=== PATIENT | female | born 2005 | race Caucasian/White ===

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

== ENCOUNTER 2025-07-03 10:07 | Inpatient (IN) ==
[2025-07-03 11:39] LABS: Appearance Urine Clear (Clear); Glucose Urine UA Negative (Negative)
[2025-07-03 11:40] LABS: Hematocrit (blood only) 44.0 % (37.0-47.0); Hemoglobin 15.2 g/dL (12.0-16.0); Immature Granulocytes # (auto) 0.06 K/uL (0.01-0.20); Immature Granulocytes % (auto) 0.4 %; Mean Corpuscular Hemoglobin 28.9 pg (25.0-34.0); Mean Corpuscular Volume 83.7 fL (80.0-100.0); Platelet Count 335 K/uL (130-400); RDW Standard Deviation 39.6 fL (36.4-46.3); Red Blood Count 5.26 M/uL (4.20-5.40); White Blood Count 14.31 K/ul (4.8-10.8)
[2025-07-03 11:56] LABS: Alanine Aminotransferase 10.0 U/L (7-52); Albumin Globulin Ratio 1.6 (0.9-2); Albumin Level 4.7 gm/dl (3.4-5.0); Alkaline Phosphatase 66.0 U/L (34-104); Anion Gap 8.0 (3-11); Bilirubin,Total 0.3 mg/dl (0.2-1.0); Blood Urea Nitrogen 14.0 mg/dl (6-23); Calcium 9.5 mg/dl (8.6-10.3); Carbon Dioxide 27.0 mmol/L (21-32); Chloride 103.0 mmol/L (98-107); Creatinine Clr Calc Pharmacy 97.7 ml/min; Globulin 3.0 gm/dl (2.5-4.0); Glucose 96.0 mg/dl (70-99(Fasting)); Potassium 4.1 mmol/L (3.5-5.1); Sodium 138.0 mmol/L (136-145); Total Protein 7.7 gm/dl (6.0-8.3)
[2025-07-03 11:58] LABS: Amphetamines+Metham, Urine Neg (Neg); MDMA (Ecstacy), Urine Neg (Neg); Marijuana, Urine Pos (Neg)
[2025-07-03 12:08] LABS: Acetaminophen < 3 ug/ml (10-30); Salicylate < 3.0 mg/dl (3.0-30)
[2025-07-03 12:10] LABS: Thyroid Stimulating Hormone 2.829 uIu/ml (0.300-4.500)
--- NOTE | 2025-07-03 12:22 | Emergency Department Note ---
History of Present Illness General Chief complaint: Mental Health Evaluation Stated complaint: SUICIDAL THOUGHTS, REF BY DOC Time Seen by Provider: 07/03/25 11:10 Source: patient Mode of arrival: ambulatory Limitations: no limitations History of Present Illness Patient was sent over to the emergency room for mental health evaluation. She was filling out a depression screening at her primary care office and there were several red flags noted. She has had some ongoing suicidal thoughts for months now. No current plan or change in thoughts at this time. She states she has had less motivation and increased fatigue over the past few weeks. She is taking fluoxetine at home. Not currently established with a psychiatrist for the past month. Denies any auditory or visual hallucinations. No homicidal ideations. Denies increased anxiety. Daily marijuana user. No alcohol use reported. No other medical complaints at this time. Home Medications Medication Instructions Recorded Confirmed Type hydroxyzine HCl 50 mg tablet 50 mg PO BID PRN anxiety, insomnia 11/25/24 07/03/25 Rx #60 tabs fluoxetine 40 mg capsule 60 mg PO QAM 12/18/24 07/03/25 History guanfacine 1 mg tablet 1 mg PO HS 07/03/25 07/03/25 History mirtazapine 15 mg tablet 15 mg PO HS 07/03/25 07/03/25 History Allergies Allergy/AdvReac Type Severity Reaction Status Date / Time No Known Allergies Allergy Unverified 11/18/24 21:11 Past Med/Surg History Problem List (Updated 07/03/25 @ 13:31 by Derek Connolly MD) Alcohol use Depression with suicidal ideation (Acute) Borderline personality disorder Trauma and stressor-related disorder Insomnia Cannabis use disorder MDD (major depressive disorder), recurrent severe, without psychosis Generalized anxiety disorder with panic attacks Medical History (Updated 07/03/25 @ 13:31 by Derek Connolly MD) Relationship problem with boyfriend Hypokalemia Suicide attempt by drug overdose Social History Smoking Status: Current some day smoker Tobacco Type: E-cigarettes / Vaping Preferred Language: Mauritian Communication Ability: Effective Sap Pi Developer Required: No Beliefs That Will Affect Care: None Feels Safe at Home: Yes Gender Identity: Female Assistive Devices: Glasses Review of Systems Review of systems negative outside of positive findings mentioned in HPI. Physical Exam Vital Signs Vital Signs - 24 hr 07/03/25 10:10 Temperature 36.6 C Temperature Source Temporal Artery Scan Pulse Rate 82 Respiratory Rate 17 Respiratory Effort / Characteristics Non-Labored Spontaneous Respiratory Depth Normal Blood Pressure 107/72 Blood Pressure Mean 83 Pulse Oximetry 97 Oxygen Delivery Method Room Air Sepsis Recent Fever Within 48 Hours No Sepsis New/Unexplained Change in Mental Status No Sepsis Action Taken by Nursing No Action Required See below. Constitutional WD/WN, vitals as above Eyes PERRL, conjunctivae normal, anicteric sclerae Respiratory normal respiratory effort, lungs clear to auscultation Cardiovascular RRR, no murmur, no edema Gastrointestinal (Abdomen) normal bowel sounds, soft, nontender, no hepatosplenomegaly Skin no rashes, warm and dry Psychiatric Orientation: alert and oriented x 3 Eye Contact: + fair eye contact Speech: speech normal rate, rhythm, volume Affect: + flat affect Mood: + depressed mood Thought Process: linear, logical thought process Homicidal Thoughts: denies suicidal thoughts Hallucinations: no auditory hallucinations and no visual hallucinations Insight: good insight Judgment: + limited judgement Medical Decision Making Differential Diagnosis DDx includes but not limited to: Depression, anxiety, suicidal ideations, seasonal affective disorder, metabolic abnormality, infection Medical Records Attestation: I reviewed the patient's medical records. Home Medications Current Medication List: was personally reviewed by me Laboratory Data Attestation: I reviewed the patient's lab results. 07/03/25 10:30 07/03/25 10:30 Lab Results 07/03/25 07/03/25 Range/Units 10:30 11:53 WBC 14.31 H (4.8-10.8) K/ul RBC 5.26 (4.20-5.40) M/uL Hgb 15.2 (12.0-16.0) g/dL Hct 44.0 (37.0-47.0) % MCV 83.7 (80.0-100.0) fL MCH 28.9 (25.0-34.0) pg MCHC 34.5 (32.0-36.0) g/dL RDW Std Deviation 39.6 (36.4-46.3) fL RDW Coeff of Derrick 12.9 (11.5-14.5) % Plt Count 335 (130-400) K/uL MPV 9.9 (9.4-12.4) fL Immature Gran % (Auto) 0.4 % Neut % (Auto) 71.4 % Lymph % (Auto) 21.7 % [place] % (Auto) 4.1 % Eos % (Auto) 1.8 % Baso % (Auto) 0.6 % Neut # (Auto) 10.21 H (1.40-6.50) K/uL Lymph # (Auto) 3.11 (1.20-3.40) K/uL [place] # (Auto) 0.59 (0.11-0.59) K/uL Eos # (Auto) 0.26 (0.00-0.50) K/uL Baso # (Auto) 0.08 (0.00-0.20) K/uL Immature Gran # (Auto) 0.06 (0.01-0.20) K/uL Sodium 138 (136-145) mmol/L Potassium 4.1 (3.5-5.1) mmol/L Chloride 103 (98-107) mmol/L Carbon Dioxide 27 (21-32) mmol/L Anion Gap 8 (3-11) BUN 14 (6-23) mg/dl Creatinine 0.76 (0.6-1.2) mg/dl Est Cr Clr Drug Dosing 97.7 ml/min eGFR 114.97 BUN/Creatinine Ratio 18.4 (10-20) Glucose 96 (70-99(Fasting)) mg/dl Calcium 9.5 (8.6-10.3) mg/dl Total Bilirubin 0.3 (0.2-1.0) mg/dl AST 19 (13-39) U/L ALT 10 (7-52) U/L Alkaline Phosphatase 66 (34-104) U/L Total Protein 7.7 (6.0-8.3) gm/dl Albumin 4.7 (3.4-5.0) gm/dl Globulin 3.0 (2.5-4.0) gm/dl Albumin/Globulin Ratio 1.6 (0.9-2) TSH 2.829 (0.300-4.500) uIu/ml Urine Color Yellow Urine Appearance Clear (Clear) Urine pH 6.5 (4.5-7.5) Ur Specific [place] 1.022 (1.000-1.030) Urine Protein Negative (Negative) Urine Glucose (UA) Negative (Negative) Urine Ketones Negative (Negative) Urine Blood Negative (Negative) Urine Nitrite Negative (Negative) Urine Bilirubin Negative (Negative) Urine Urobilinogen Negative (Negative) Ur Leukocyte Esterase Negative (Negative) Urine Test Negative (Negative) Urine Comment Salicylates < 3.0 L (3.0-30) mg/dl Urine Opiates Screen Neg (Neg) Ur Methadone, Qual Neg (Neg) Urine Fentanyl Screen Neg (Neg) Acetaminophen < 3 L (10-30) ug/ml Urine Barbiturates Neg (Neg) Ur Phencyclidine (PCP) Neg (Neg) U Amphetamin/Meth Scrn Neg (Neg) MDMA (Ecstasy) Screen Neg (Neg) U Benzodiazepines Scrn Neg (Neg) Ur Cocaine Metabolite Neg (Neg) U Marijuana (THC) Screen Pos H (Neg) Ethyl Alcohol mg/dL < 10.0 (<10.0) mg/dl SARS-CoV-2, RNA, NAAT NEGATIVE (NEGATIVE) Blood Pressure Blood Pressure Findings: Normal blood pressure MDM Narrative Patient is a 20-year-old female presents for suicidal ideations that was discovered during her primary care visit. She does endorse passive suicidal ideations without a plan. She has also had increased depressive mood and lack of motivation over the past month. She is not currently set up with a psychiatrist outpatient but does take fluoxetine. No current medical complaints or findings on her workup here today concerning for organic cause of her ongoing symptoms and she is medically cleared for psychiatric evaluation. She will be admitted under voluntary status to inpatient psychiatry service here at [facility]. Patient is medically cleared at this time. Impression & Plan Depression with suicidal ideation Discharge Plan Visit Data Chief Complaint: Mental Health Evaluation Stated Complaint: SUICIDAL THOUGHTS, REF BY DOC ED Provider: Derek Connolly Discharge Problem: Depression with suicidal ideation Patient Disposition: Admitted As Inpatient Condition: Good Forms Stand Alone Forms: My [facility], Suicide Prevention Resources Prescriptions Prescriptions: No Action fluoxetine 40 mg capsule 60 mg PO QAM guanfacine 1 mg Tablet 1 mg PO HS mirtazapine 15 mg Tablet 15 mg PO HS hydroxyzine HCl 50 mg tablet 50 mg PO BID PRN (Reason: anxiety, insomnia) Qty: 60 0RF Referrals Referrals: PCP,NO [Primary Care Provider] -
[2025-07-03] MEDS ORDERED: BISMUTH SUBSALICYLATE 262 MG CHEW PO PRN (14:15)
[2025-07-03] MEDS ORDERED: SODIUM CHLORIDE 0.65% NA SOLN 45 ML (OCEAN) PRN (14:15)
[2025-07-03] MEDS ORDERED: MAGNESIUM HYDROXIDE SUSP 30 ML UDC PO PRN (14:15)
[2025-07-03] MEDS ORDERED: ALUMINUM/MAGNESIUM SUSP 30 ML UDC PO PRN (14:15)
[2025-07-03] MEDS ORDERED: ACETAMINOPHEN 325 MG TAB PO PRN (14:15)
[2025-07-03] MEDS: MIRTAZAPINE TAB 15 MG TAB PO SCH (20:11)
[2025-07-04] MEDS: NICOTINE POLACRILEX 2 MG GUM MT PRN (06:40)
[2025-07-04] MEDS: NICOTINE 7 MG/24 HR TDSY TD SCH (09:05)
[2025-07-04] MEDS: REMOVE NICODERM PATCH SCH (09:05)
--- NOTE | 2025-07-04 09:07 | History & Physical ---
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 Comes today via ER with similar presentation. She has been smoking marijuana and drinking alcohol. Patient dropped out of school has been feeling extremely fatigued and unmotivated. 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 She completed the autism quotient (AQ) and score at 24. Autism spectrum disorder is highly likely. Patient expressed frustration with the ineffectiveness of psychotherapy and previous medications. She perceives that Prozac is not effective and is unwilling to increase the dose. We discussed other options. Patient agreed to cross titrate in favor of Effexor. Side effects discussed including but not limited to GI headaches and discontinuation syndrome symptoms. (1) Depression with suicidal ideation: (2) Cannabis use disorder: (3) MDD (major depressive disorder), recurrent severe, without psychosis: (4) Generalized anxiety disorder with panic attacks: (5) Autism spectrum disorder: Provisional Plan 07/04: Patient was admitted to the [facility] ([facility] mental health unit) on q15 min checks (behavioral with suicide precautions) for safety. The patient will participate in group, recreational, and milieu therapies and will be offered add itional individual and family sessions as clinically appropriate. - Start Effexor 37.5 mg p.o. every morning (first dose 07/05) - Discontinue fluoxetine 40mg daily -Increase guanfacine to 1 mg twice daily. Educated about risk for hypotension. Recommended to increase water intake. -Labs: Admission labs reviewed and shared with the patient -Questionnaire: Autism Quotient (score=24) Inventory Assets Strengths: Seeking help, curious, intelligent. Suicide Risk Level Suicide Risk Level: High-Moderate (q15 min suicide checks) Risk Factors Assessment Do You Have Access To A Gun?: No Health Problems: No Mental Health Diagnoses: Yes Substance Use Disorders: Yes Previous Attempt: Yes Family History of Suicide: No Previous Psychiatric Hospitalization: Yes Hopelessness: Yes Protective Factors Assessment Employed: Yes ([employer]) Good Rapport with Provider: Yes Psychiatric History Identifying Data LINDA ROMERO is a 20-year-old F who currently lives in [] [alone] with [], has a history of [], and was admitted on 07/03/25 14:15 on a [201 voluntary] [302 involuntary] commitment for []. Chief Complaint "I was not able to function" History of Present Illness LINDA ROMERO is a 20-year-old F who currently lives with a roommate, has a history of depression and anxiety, and was admitted on 07/03/25 14:15 on a 201 voluntary commitment for stabilization. According to the emergency room evaluation note on 07/03/25, "Patient was sent over to the emergency room for mental health evaluation. She was filling out a depression screening at her primary care office and there were several red flags noted. She has had some ongoing suicidal thoughts for months now. . ." Patient has previous admission at [facility] in November 2024 she was treated for MDD, BEN, and insomnia. she was recommended to continue treatment with clonidine, fluoxetine, quetiapine, and lorazepam. Medications were changed in the outpatient setting. Her home medications include t guanfacine, mirtazapine, duloxetine, hydroxyzine. Patient indicated that she has been feeling depressed for over a year but also believes that she has had difficulty with emotional regulation "my entire life.". Patient shared that she stopped going to school and is taking "a gap year" because of financial constraints. However, she admits that she had been struggling to function in school and feels unmotivated to continue her career path. Patient stated that she used to have problems with insomnia for many years and after the introduction of Remeron the insomnia improved but in the last month she has been sleeping too much, staying in bed 14 hours or more. She wishes to continue Remeron but to find a way of being active during the daytime. She reports feeling extremely fatigued both physically and mentally. Patient stated "I was in bed always, and if I left the place he wants to go to work if I was able to find myself to go to work." She has stated that the symptoms worsened in the last month and the last 2 weeks have been particularly . Patient has a long history of emotional dysregulation, difficulty with social cues, feelings of not belonging, difficulty communicating her thoughts "because I have too many thoughts and I had she denied." History of episodes consistent with jose like symptoms. Reported some obsessive thinking but no clear history of compulsions or ritualistic behaviors. She has a history of interacting in an imaginary world when she was younger but denies history of psychosis. Patient was never formally diagnosed with ADHD but admits to having problems with attention and concentration. She feels that guanfacine has been very helpful. Wishes to increase the dose of guanfacine and understands that this can cause hypotension. Patient denied suicidal ideation plan or intent at this time. However reports past attempts including an attempt to overdose early earlier this year (which prompted an admission to our hospital in October). Past Psychiatric History Previous Psych History: Patient expressed to struggle with his emotional dysregulation affecting social interactions and sleep patterns. She reported a long history of anxiety and emotional problems dating back to seventh grade. She has seen multiple psychotherapist and feels that that treatment format has not provided any benefit. Patient has tried multiple medications in the past including Celexa, Zoloft, Wellbutrin, lithium. She stated that none of those medications seem to be helpful. Previously diagnosed with MDD BEN and borderline personality disorder. Cannabis use disorder Current Psychiatric Diagnosis: Unspecified Depressive Disorder Previous Psych Admissions: [facility] October [facility]24 Do You Have Access To A Gun?: No History of Previous Suicide Attempt: Yes Past Head Trauma/Neuro History Denied Allergies Allergy/AdvReac Type Severity Reaction Status Date / Time No Known Allergies Allergy Unverified 11/18/24 21:11 Home Medications Medication Instructions Recorded Confirmed Type hydroxyzine HCl 50 mg tablet 50 mg PO BID PRN anxiety, insomnia 11/25/24 07/03/25 Rx #60 tabs fluoxetine 40 mg capsule 40 mg PO QAM 12/18/24 07/04/25 History guanfacine 1 mg tablet 1 mg PO HS 07/03/25 07/03/25 History mirtazapine 15 mg tablet 15 mg PO HS 07/03/25 07/03/25 History Family History Family History of: Depression, Anxiety and Alcoholism/Drug Abuse Family Mental Health History Comment: Pt unable to provide any details Alcohol History Hx of Alcohol Use Over the Past 12 Months: Yes (socially) AUDIT Total Score: 1 Has been drinking. Unable to quantify. Back in October during a previous admission patient reported she had been drinking heavily with her friends. No evidence of withdrawal symptoms at this time. Smoking Use Have You Smoked or Used Tobacco Products in the Last 30 Days: Yes tobacco type: e-cigarettes Smoking Status: Current some day smoker Substance History Hx of Prescription Med Misuse Over the Past 12 Months: No Hx of Over the Counter Med Misuse Over the Past 12 Months: No Hx of Inhalent Misuse Over the Past 12 Months: No Hx of Organic Substance Use Over the Past 12 Months: Yes (MJ use daily) Hx of Illegal Substances/Street Drug Use Over Past 12 Months: No Problems as a Result of Past Substance Use: None Identified Personal History Living Arrangements: Apartment Highest Grade Completed: High School Graduate Highest Grade Completed Comment: Pt is taking a gap yr at [employer],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 Marital Status: Single Number Of Children: 0 Beliefs That Will Affect Care: None Hx Traumatic Life Events: Yes Patient History Medical History Relationship problem with boyfriend Hypokalemia Suicide attempt by drug overdose Social History Smoking Status: Current some day smoker Tobacco Type: E-cigarettes / Vaping Preferred Language: Vietnamese Communication Ability: Effective Supervisory Historian Required: No Beliefs That Will Affect Care: None Feels Safe at Home: Yes Gender Identity: Female Assistive Devices: Glasses Review of Systems Constitutional: Fatigue Eyes: No changes in visual acuity Ear, Nose, Mouth, Throat: Denies congestion, denies sore throat Respiratory: Denies shortness of breath Cardiovascular: Additional Comments: Denies chest pain Endocrine: Reported an episode of hypothyroidism 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 Patient no longer taking lithium Physical Exam Mental Examination: Appearance: Well Groomed Eye Contact: Fleeting Contact Motor Behavior: Unremarkable Speech: Normal and Soft Mood: Depressed and Anxious Affect: Anxious, Congruent and Flat Thought Process: Intact and Goal Oriented Hallucinations: None Insight: Fair Judgement: Fair Psychiatric: Orientation: alert and oriented x 3 Eye Contact: + fair eye contact Speech: normal rate/rhythm/volume of speech Affect: + flat affect Mood: + depressed mood and + anxious mood Thought Process: linear/logical thought process Homicidal Thoughts: denies homicidal thoughts H allucinations: no auditory hallucinations and no visual hallucinations Insight: good insight Judgment: + limited judgement Vital Signs (Past 24 Hours): Last Vital Signs Temp 36.7 C 07/04/25 06:00 Pulse 67 07/04/25 06:16 Resp 16 07/04/25 06:00 BP 91/60 L 07/04/25 06:16 Pulse Ox 98 07/03/25 15:02 O2 Del Method Room Air 07/03/25 15:02 Physical Examination: A physical exam was performed in the [ED] by Dr. Greenfield. I accept that physical as correct and adequate for the purposes of the inpatient physical exam. Constitutional: WD/WN, vitals as above Eyes: PERRL, conjunctivae normal, anicteric sclerae Respiratory: normal respiratory effort, lungs clear to auscultation Cardiovascular: RRR, no murmur, no edema Gastrointestinal (Abdomen): normal bowel sounds, soft, nontender, no hepatosplenomegaly Skin: no rashes, warm and dry Results & Data ([facility]) Laboratory Results Laboratory Results - last 24 hr 07/03/25 07/03/25 10:30 11:53 WBC 14.31 H RBC 5.26 Hgb 15.2 Hct 44.0 MCV 83.7 MCH 28.9 MCHC 34.5 RDW Std Deviation 39.6 RDW Coeff of Derrick 12.9 Plt Count 335 MPV 9.9 Immature Gran % (Auto) 0.4 Neut % (Auto) 71.4 Lymph % (Auto) 21.7 [place] % (Auto) 4.1 Eos % (Auto) 1.8 Baso % (Auto) 0.6 Neut # (Auto) 10.21 H Lymph # (Auto) 3.11 [place] # (Auto) 0.59 Eos # (Auto) 0.26 Baso # (Auto) 0.08 Immature Gran # (Auto) 0.06 Sodium 138 Potassium 4.1 Chloride 103 Carbon Dioxide 27 Anion Gap 8 BUN 14 Creatinine 0.76 Est Cr Clr Drug Dosing 97.7 eGFR 114.97 BUN/Creatinine Ratio 18.4 Glucose 96 Calcium 9.5 Total Bilirubin 0.3 AST 19 ALT 10 Alkaline Phosphatase 66 Total Protein 7.7 Albumin 4.7 Globulin 3.0 Albumin/Globulin Ratio 1.6 TSH 2.829 Urine Color Yellow Urine Appearance Clear Urine pH 6.5 Ur Specific [place] 1.022 Urine Protein Negative Urine Glucose (UA) Negative Urine Ketones Negative Urine Blood Negative Urine Nitrite Negative Urine Bilirubin Negative Urine Urobilinogen Negative Ur Leukocyte Esterase Negative Urine Test Negative Urine Comment Salicylates < 3.0 L Urine Opiates Screen Neg Ur Methadone, Qual Neg Urine Fentanyl Screen Neg Acetaminophen < 3 L Urine Barbiturates Neg Ur Phencyclidine (PCP) Neg U Amphetamin/Meth Scrn Neg MDMA (Ecstasy) Screen Neg U Benzodiazepines Scrn Neg Ur Cocaine Metabolite Neg U Marijuana (THC) Screen Pos H U Marijuana THC Carboxy Pending Drug Screen Comment Pending Ethyl Alcohol mg/dL < 10.0 SARS-CoV-2, RNA, NAAT NEGATIVE Current Inpatient Medications Current Inpatient Medications: Current Inpatient Medications Acetaminophen (Acetaminophen 325 Mg Tab) 650 mg PO Q4H PRN PRN Reason: Headache or Minor Fever Stop: 08/02/25 14:14 Al Hydrox/Mg Hydrox/Simethicone (Aluminum/Magnesium Susp 30 Ml Udc) 30 ml PO Q4H PRN PRN Reason: GI Upset Stop: 08/02/25 14:14 Bismuth Subsalicylate (Bismuth Subsalicylate 262 Mg Chew) 2 tab PO Q30M PRN PRN Reason: Loose Stool/Diarrhea Stop: 08/02/25 14:14 Fluoxetine HCl (Fluoxetine Hcl 20 Mg Cap) 60 mg PO QAM H[place]OL[place]O Stop: 08/03/25 08:59 Last Admin: 07/04/25 09:04 Dose: 60 mg Guanfacine HCl (Guanfacine Hcl 1 Mg Tab) 1 mg PO HS H[place]OLITO Stop: 08/02/25 21:59 Last Admin: 07/03/25 20:11 Dose: 1 mg Hydroxyzine HCl (Hydroxyzine Hcl 25 Mg Tab) 50 mg PO HSZ PRN PRN Reason: Insomnia Stop: 08/02/25 14:14 Hydroxyzine HCl (Hydroxyzine Hcl 25 Mg Tab) 25 mg PO Q4H PRN PRN Reason: Anxiety Stop: 08/02/25 14:14 Magnesium Hydroxide (Magnesium Hydroxide Susp 30 Ml Udc) 30 ml PO DAILY PRN PRN Reason: Constipation Stop: 08/02/25 14:14 Mirtazapine (Mirtazapine Tab 15 Mg Tab) 15 mg PO HS H[place]OLITO Stop: 08/02/25 21:59 Last Admin: 07/03/25 20:11 Dose: 15 mg Miscellaneous (Remove Nicoderm Patch) 1 each N/A DAILY@0859 [place]O Stop: 08/03/25 08:58 Last Admin: 07/04/25 09:05 Dose: Not Given Nicotine (Nicotine 7 Mg/24 Hr Tdsy) 1 patch TD QAM [place]O Stop: 08/03/25 08:59 Last Admin: 07/04/25 09:05 Dose: Not Given Nicotine Polacrilex (Nicotine Polacrilex 2 Mg Gum) 2 piece MT PRN PRN PRN Reason: Nicotine Withdrawal Symptoms Stop: 08/02/25 14:14 Last Admin: 07/04/25 06:40 Dose: 2 piece Sodium Chloride (Sodium Chloride 0.65% Na Soln 45 Ml ([place])) 1 - 2 sprays NA PRN PRN PRN Reason: Nasal Dryness/Congestion Stop: 08/02/25 14:14
[2025-07-05] MEDS: VENLAFAXINE HCL 37.5 MG TAB PO SCH (08:44)
--- NOTE | 2025-07-05 11:28 | Psychiatric Progress Note ---
Date of Service July 05, 2025 Impression / Recommendations Impression Patient with symptoms of depression, anxiety, borderline traits. Agreeable to switching to Effexor and tolerated first dose well. Now ready for increase on the dose tomorrow. She requested to keep the Remeron as it has been helpful for insomnia. (1) Depression with suicidal ideation: (2) Cannabis use disorder: (3) MDD (major depressive disorder), recurrent severe, without psychosis: (4) Generalized anxiety disorder with panic attacks: (5) Autism spectrum disorder: Provisional Plan 07/05/25: -Increase Effexor to 75mg po tomorrow. -continue rest of medication without changes -continue suicide precautions. 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 Comes today via ER with similar presentation. She has been smoking marijuana and drinking alcohol. Patient dropped out of school has been feeling extremely fatigued and unmotivated. 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 She completed the autism quotient (AQ) and score at 24. Autism spectrum disorder is highly likely. - Start Effexor 37.5 mg p.o. every morning (first dose 07/05) - Discontinue fluoxetine 40mg daily -Increase guanfacine to 1 mg twice daily. Educated about risk for hypotension. Recommended to increase water intake. -Labs: Admission labs reviewed and shared with the patient -Questionnaire: Autism Quotient (score=24) Inventory Assets Strengths: Seeking help, curious, intelligent. Suicide Risk Level Suicide Risk Level: High-Moderate (q15 min suicide checks) Risk Factors Assessment Do You Have Access To A Gun?: No Health Problems: No Mental Health Diagnoses: Yes Substance Use Disorders: Yes Previous Attempt: Yes Family History of Suicide: No Previous Psychiatric Hospitalization: Yes Hopelessness: Yes Protective Factors Assessment Employed: Yes ([employer]) Good Rapport with Provider: Yes Interval History Identifying Information LINDA ROMERO is a 20-year-old F who was admitted on 07/03/25 14:15 on a 201 voluntary commitment for suicidal ideation. Chief Complaint "I was having very anxious dreams all the time and I didn't have bad dream last night." Review of Systems Sleep Information Total Hours of Sleep: 5.5 Meal Information Percent Meal Consumed - Breakfast: 25 Percent Meal Consumed - Lunch: 65 Percent Meal Consumed - Dinner: 90 Subjective Subjective Patient was seen & assessed and interval progress reviewed with nursing and social work. She complained of feeling dizzy earlier in the day while at was able to increase water intake and the dizziness resolved. Patient reported she feels restless most of the day but relaxes when playing with puzzles. Her affect is brighter but her thought process is pessimistic and tangential.. Reported she feels safe on the unit and being here prevents her form "falling back" (as in hurting herself). She explained that she has chronic suicidal faults and also episodic self mutilation that she utilizes as a coping mechanism when feeling overly anxious or having a panic attack. Denied side effects from first dose of Effexor. Physical Exam Mental Examination Appearance: Well Groomed Eye Contact: Fleeting Contact Motor Behavior: Unremarkable Speech: Normal and Soft Mood: Depressed and Anxious Affect: Anxious, Congruent and Flat Thought Process: Intact and Goal Oriented Hallucinations: None Insight: Fair Judgement: Fair Psychiatric Orientation: alert and oriented x 3 Eye Contact: + fair eye contact Speech: normal rate/rhythm/volume of speech Affect: + flat affect Mood: + depressed mood and + anxious mood Thought Process: + tangential thought process Homicidal Thoughts: denies homicidal thoughts Hallucinations: no auditory hallucinations and no visual hallucinations Insight: good insight Judgment: + limited judgement Vital Signs (Past 24 Hours) Last Vital Signs Temp 36.3 C L 07/05/25 06:00 Pulse 65 07/05/25 06:28 Resp 16 07/05/25 06:00 BP 90/53 L 07/05/25 06:28 Pulse Ox 98 07/03/25 15:02 O2 Del Method Room Air 07/03/25 15:02 A physical exam was performed in the ED by Dr. Greenfield. I accept that physical as correct and adequate for the purposes of the inpatient physical exam. No changes to the exam today Constitutional WD/WN, vitals as above Eyes PERRL, conjunctivae normal, anicteric sclerae Respiratory normal respiratory effort, lungs clear to auscultation Cardiovascular RRR, no murmur, no edema Gastrointestinal (Abdomen) normal bowel sounds, soft, nontender, no hepatosplenomegaly Skin no rashes, warm and dry Results & Data ([facility]) Current Inpatient Medications Current Inpatient Medications: Current Inpatient Medications Acetaminophen (Acetaminophen 325 Mg Tab) 650 mg PO Q4H PRN PRN Reason: Headache or Minor Fever Stop: 08/02/25 14:14 Al Hydrox/Mg Hydrox/Simethicone (Aluminum/Magnesium Susp 30 Ml Udc) 30 ml PO Q4H PRN PRN Reason: GI Upset Stop: 08/02/25 14:14 Bismuth Subsalicylate (Bismuth Subsalicylate 262 Mg Chew) 2 tab PO Q30M PRN PRN Reason: Loose Stool/Diarrhea Stop: 08/02/25 14:14 Guanfacine HCl (Guanfacine Hcl 1 Mg Tab) 1 mg PO BID [facility] Stop: 08/03/25 20:59 Last Admin: 07/05/25 08:44 Dose: 1 mg Hydroxyzine HCl (Hydroxyzine Hcl 25 Mg Tab) 50 mg PO HSZ PRN PRN Reason: Insomnia Stop: 08/02/25 14:14 Hydroxyzine HCl (Hydroxyzine Hcl 25 Mg Tab) 25 mg PO Q4H PRN PRN Reason: Anxiety Stop: 08/02/25 14:14 Last Admin: 07/04/25 21:19 Dose: 25 mg Magnesium Hydroxide (Magnesium Hydroxide Susp 30 Ml Udc) 30 ml PO DAILY PRN PRN Reason: Constipation Stop: 08/02/25 14:14 Mirtazapine (Mirtazapine Tab 15 Mg Tab) 15 mg PO HS [facility] Stop: 08/02/25 21:59 Last Admin: 07/04/25 21:18 Dose: 15 mg Miscellaneous (Remove Nicoderm Patch) 1 each N/A DAILY@0859 [facility] Stop: 08/03/25 08:58 Last Admin: 07/05/25 08:44 Dose: Not Given Nicotine (Nicotine 7 Mg/24 Hr Tdsy) 1 patch TD QAM [facility] Stop: 08/03/25 08:59 Last Admin: 07/05/25 08:45 Dose: Not Given Nicotine Polacrilex (Nicotine Polacrilex 2 Mg Gum) 2 piece MT PRN PRN PRN Reason: Nicotine Withdrawal Symptoms Stop: 08/02/25 14:14 Last Admin: 07/05/25 11:06 Dose: 2 piece Sodium Chloride (Sodium Chloride 0.65% Na Soln 45 Ml ([place])) 1 - 2 sprays NA PRN PRN PRN Reason: Nasal Dryness/Congestion Stop: 08/02/25 14:14 Venlafaxine HCl (Venlafaxine Hcl 37.5 Mg Tab) 37.5 mg PO BID [facility] Stop: 08/04/25 08:59 Last Admin: 07/05/25 08:44 Dose: 37.5 mg Mental Health & Subst Abuse Tx Psychiatrist Date Of Appointment With Psychiatric Provider: 08/07/25 Therapist Name of Therapist: None Sign Letterer Name of Sign Letterer: Denies Post Discharge Appointments Primary Care Physician [facility]
--- NOTE | 2025-07-06 10:19 | Psychiatric Progress Note ---
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 Comes today via ER with similar presentation. She has been smoking marijuana and drinking alcohol. Patient dropped out of school has been feeling extremely fatigued and unmotivated. Chronic suicidal ideation and self-harm urges, mood dysregulation, feelings of emptiness, and hopelessness consistent with borderline personality disorder. 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 She completed the autism quotient (AQ) and score at 24. We are targeting depression and anxiety with antidepressants she may benefit from augmentation with antipsychotics but declined the offer. Patient will benefit from continuing psychotherapy after discharge. (1) Depression with suicidal ideation: (2) Cannabis use disorder: (3) MDD (major depressive disorder), recurrent severe, without psychosis: (4) Generalized anxiety disorder with panic attacks: (5) Autism spectrum disorder: Provisional Plan 07/06/25: - Patient did not try higher dose of Effexor today but will take the higher dose tomorrow morning. Will monitor for GI side effects. - Silvadene topical cream twice daily for self-inflicted superficial burn - Rest of medication continue without changes - Continue suicide precautions 07/05/25: -Increase Effexor to 75mg po tomorrow. -continue rest of medication without changes -continue suicide precautions. 07/04: Patient was admitted to the [facility] ([facility] health unit) on q15 min checks (behavioral with suicide precautions) for safety. The patient will participate in group, recreational, and milieu therapies and will be offered additional individual and family sessions as clinically appropriate. - Start Effexor 37.5 mg p.o. every morning (first dose 07/05) - Discontinue fluoxetine 40mg daily -Increase guanfacine to 1 mg twice daily. Educated about risk for hypotension. Recommended to increase water intake. -Labs: Admission labs reviewed and shared with the patient -Questionnaire: Autism Quotient (score=24) Inventory Assets Strengths: Seeking help, curious, intelligent. Suicide Risk Level Suicide Risk Level: High-Moderate (q15 min suicide checks) Risk Factors Assessment Do You Have Access To A Gun?: No Health Problems: No Mental Health Diagnoses: Yes Substance Use Disorders: Yes Previous Attempt: Yes Family History of Suicide: No Previous Psychiatric Hospitalization: Yes Hopelessness: Yes Protective Factors Assessment Employed: Yes ([employer]) Good Rapport with Provider: Yes Interval History Chief Complaint "I eel pretty hopeless today". Review of Systems Sleep Information Total Hours of Sleep: 7 Meal Information Percent Meal Consumed - Breakfast: 5 Percent Meal Consumed - Lunch: 10 Percent Meal Consumed - Dinner: 50 Subjective Subjective Patient was seen & assessed and interval progress reviewed with treatment team. According to staff patient rated her mood at 3 out of 10 and reported feeling anxious this morning today during the interview patient complained of. No deterioration that started last night suddenly after an episode of panic that she did not share with staff. Patient indicated that she became nauseous during dinner and this patient told me she has been in therapy for led to a panic she has a history of eating disorder episode.. Patient explained that after the panic episode she went to her room and started hurting herself by rubbing her ankles forcefully until the skin looked burnt. She claims that this is the only way she knows to calm herself down. Patient tell me she has been enrolled in therapy on and off for a long time and is familiar with DBT, stating "I can probably restart the manual without looking." Patient reported she had been treated with lithium to address the chronic suicidal thoughts and it was not helpful. She is unwilling to try again. She had also tried Abilify for augmentation which did not work. Patient is reluctant to try other newer medications like Caplyta. She is agreeable to continue tapering off Effexor. We discussed other activities that can help her distract and soothe herself. Patient agreed to reach out to staff if the self- harm urges return. Physical Exam Mental Examination Appearance: Well Groomed Eye Contact: Fleeting Contact Motor Behavior: Unremarkable Speech: Normal and Soft Mood: Depressed and Anxious Affect: Anxious, Congruent and Flat Thought Process: Intact and Goal Oriented Hallucinations: None Insight: Fair Judgement: Fair Psychiatric Orientation: alert and oriented x 3 Eye Contact: + fair eye contact Speech: normal rate/rhythm/volume of speech Affect: + flat affect Mood: + depressed mood and + anxious mood Thought Process: linear/logical thought process Homicidal Thoughts: denies homicidal thoughts Hallucinations: no auditory hallucinations and no visual hallucinations Insight: good insight Judgment: + limited judgement Vital Signs (Past 24 Hours) Last Vital Signs Temp 36.1 C L 07/06/25 06:00 Pulse 62 07/06/25 06:28 Resp 16 07/06/25 06:00 BP 106/72 07/06/25 06:28 Pulse Ox 98 07/03/25 15:02 O2 Del Method Room Air 07/03/25 15:02 Lower limb skin inspected there are oblong red lesions caused by friction no evidence of bleeding. Patient agreed to use topical treatment to prevent infection. Results & Data ([facility]) Current Inpatient Medications Current Inpatient Medications: Current Inpatient Medications Acetaminophen (Acetaminophen 325 Mg Tab) 650 mg PO Q4H PRN PRN Reason: Headache or Minor Fever Stop: 08/02/25 14:14 Al Hydrox/Mg Hydrox/Simethicone (Aluminum/Magnesium Susp 30 Ml Udc) 30 ml PO Q4H PRN PRN Reason: GI Upset Stop: 08/02/25 14:14 Bismuth Subsalicylate (Bismuth Subsalicylate 262 Mg Chew) 2 tab PO Q30M PRN PRN Reason: Loose Stool/Diarrhea Stop: 08/02/25 14:14 Guanfacine HCl (Guanfacine Hcl 1 Mg Tab) 1 mg PO BID [facility] Stop: 08/03/25 20:59 Last Admin: 07/06/25 08:30 Dose: 1 mg Hydroxyzine HCl (Hydroxyzine Hcl 25 Mg Tab) 50 mg PO HSZ PRN PRN Reason: Insomnia Stop: 08/02/25 14:14 Hydroxyzine HCl (Hydroxyzine Hcl 25 Mg Tab) 25 mg PO Q4H PRN PRN Reason: Anxiety Stop: 08/02/25 14:14 Last Admin: 07/04/25 21:19 Dose: 25 mg Magnesium Hydroxide (Magnesium Hydroxide Susp 30 Ml Udc) 30 ml PO DAILY PRN PRN Reason: Constipation Stop: 08/02/25 14:14 Mirtazapine (Mirtazapine Tab 15 Mg Tab) 15 mg PO HS [facility] Stop: 08/02/25 21:59 Last Admin: 07/05/25 20:37 Dose: 15 mg Miscellaneous (Remove Nicoderm Patch) 1 each N/A DAILY@0859 [facility] Stop: 08/03/25 08:58 Last Admin: 07/06/25 08:37 Dose: Not Given Nicotine (Nicotine 7 Mg/24 Hr Tdsy) 1 patch TD QAM [facility] Stop: 08/03/25 08:59 Last Admin: 07/06/25 08:37 Dose: Not Given Nicotine Polacrilex (Nicotine Polacrilex 2 Mg Gum) 2 piece MT PRN PRN PRN Reason: Nicotine Withdrawal Symptoms Stop: 08/02/25 14:14 Last Admin: 07/06/25 10:12 Dose: 2 piece Sodium Chloride (Sodium Chloride 0.65% Na Soln 45 Ml ([place])) 1 - 2 sprays NA PRN PRN PRN Reason: Nasal Dryness/Congestion Stop: 08/02/25 14:14 Venlafaxine HCl (Venlafaxine Hcl 37.5 Mg Tab) 37.5 mg PO BID [facility] Stop: 08/04/25 08:59 Last Admin: 07/06/25 08:30 Dose: 37.5 mg Mental Health & Subst Abuse Tx Psychiatrist Name of Psychiatrist: Denita Fernando Psychiatrist's Date Of Appointment With Psychiatric Provider: 08/07/25 Time of Appointment with Psychiatrist: 9am Therapist Name of Therapist: None Clinical Support Tech Name of Clinical Support Tech: Denies Post Discharge Appointments Primary Care Physician Name Of Family Doctor/PCP: Deja Ruff-[facility] Contact Information Discharge Discharge Address: [address] [id number], [place] [address]
[2025-07-06] MEDS: SILVER SULFADIAZINE 1% CR 400 GM JAR EXT SCH (22:16)
[2025-07-07] MEDS: VENLAFAXINE HCL 37.5 MG TAB PO SCH (08:40)
--- NOTE | 2025-07-07 10:17 | Psychiatric Progress Note ---
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 Comes today via ER with similar presentation. She has been smoking marijuana and drinking alcohol. Patient dropped out of school has been feeling extremely fatigued and unmotivated. Chronic suicidal ideation and self-harm urges, mood dysregulation, feelings of emptiness, and hopelessness consistent with borderline personality disorder. 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 She completed the autism quotient (AQ) and score at 24. She is a good candidate for TMS. No metal implants, no alcohol use, likely to respond well to bilateral protocol (to target depression and anxiety). (1) Depression with suicidal ideation: (2) Cannabis use disorder: (3) MDD (major depressive disorder), recurrent severe, without psychosis: (4) Generalized anxiety disorder with panic attacks: (5) Autism spectrum disorder: Provisional Plan 07/07/25 Continue medications without changes 07/06/25: - Patient did not try higher dose of Effexor today but will take the higher dose tomorrow morning. Will monitor for GI side effects. - Silvadene topical cream twice daily for self-inflicted superficial burn - Rest of medication continue without changes - Continue suicide precautions 07/05/25: -Increase Effexor to 75mg po tomorrow. -continue rest of medication without changes -continue suicide precautions. 07/04: Patient was admitted to the [facility] ([facility] mental health unit) on q15 min checks (behavioral with suicide precautions) for safety. The patient will participate in group, recreational, and milieu therapies and will be offered additional individual and family sessions as clinically appropriate. - Start Effexor 37.5 mg p.o. every morning (first dose 07/05) - Discontinue fluoxetine 40mg daily -Increase guanfacine to 1 mg twice daily. Educated about risk for hypotension. Recommended to increase water intake. -Labs: Admission labs reviewed and shared with the patient -Questionnaire: Autism Quotient (score=24) Inventory Assets Strengths: Seeking help, curious, intelligent. Suicide Risk Level Suicide Risk Level: High-Moderate (q15 min suicide checks) Risk Factors Assessment Do You Have Access To A Gun?: No Health Problems: No Mental Health Diagnoses: Yes Substance Use Disorders: Yes Previous Attempt: Yes Family History of Suicide: No Previous Psychiatric Hospitalization: Yes Hopelessness: Yes Protective Factors Assessment Employed: Yes ([employer]) Good Rapport with Provider: Yes Interval History Identifying Information LINDA ROMERO is a 20-year-old F who was admitted on 07/03/25 14:15 on a 201 voluntary commitment for suicidal ideation. Chief Complaint "Not good, I still feel pretty hopeless". Review of Systems Sleep Information Total Hours of Sleep: 8 Meal Information Percent Meal Consumed - Breakfast: 5 Percent Meal Consumed - Lunch: 50 Percent Meal Consumed - Dinner: 30 Subjective Subjective Patient was seen & assessed and interval progress reviewed with nursing and social work. According to staff patient has been reporting feeling depressed and has been self harming (scratching). During today's evaluation patient complained about having a nightmare last night. She indicated that the dream was about leaving the hospital to visit a friend and feeling that this friend was looking at her in a strange way that made her feel lie she had return home in worse condition than how she came to the hospital. Patient denied feeling scared after the drain but since still believe that the drain has some form of premonitory explanation of how her stay in the hospital will affect her. She admits to recent episodes of self-harm and continues to have suicidal ideation. Patient reported severe feelings of hopelessness. She was able to use the cream for the self-inflicted friction michel. The skin is looking better today. Patient continues to report severe anhedonia; however, she is opposed to medication adjustments. I offered low-dose lithium in combination with current medications and patient declined. She is unwilling to use medications tried in the past;therefore, I also offered Caplyta and patient declined. We discussed TMS and patient seemed interested. Indications, contraindications, potential side effects, and rationale for recommendation were discussed. Patient agreed to be referred to community provider. Physical Exam Psychiatric Orientation: alert and oriented x 3 Eye Contact: + fair eye contact Speech: normal rate/rhythm/volume of speech Affect: + flat affect Mood: + depressed mood and + anxious mood Thought Process: linear/logical thought process and + tangential thought process Thought Content: + cognitive distortions, + hopelessness, + worthlessness and + self deprecation Suicidal Thoughts: denies suicidal plan Homicidal Thoughts: denies homicidal thoughts Hallucinations: no auditory hallucinations and no visual hallucinations Cognition: recent memory grossly intact and remote memory grossly intact Estimated Intelligence: average estimated intelligence Insight: good insight Judgment: + limited judgement Vital Signs (Past 24 Hours) Last Vital Signs Temp 36.4 C 07/07/25 06:00 Pulse 90 07/07/25 06:18 Resp 16 07/07/25 06:00 BP 111/71 07/07/25 06:18 Pulse Ox 98 07/03/25 15:02 O2 Del Method Room Air 07/03/25 15:02 Results & Data ([facility]) Current Inpatient Medications Current Inpatient Medications: Current Inpatient Medications Acetaminophen (Acetaminophen 325 Mg Tab) 650 mg PO Q4H PRN PRN Reason: Headache or Minor Fever Stop: 08/02/25 14:14 Al Hydrox/Mg Hydrox/Simethicone (Aluminum/Magnesium Susp 30 Ml Udc) 30 ml PO Q4H PRN PRN Reason: GI Upset Stop: 08/02/25 14:14 Bismuth Subsalicylate (Bismuth Subsalicylate 262 Mg Chew) 2 tab PO Q30M PRN PRN Reason: Loose Stool/Diarrhea Stop: 08/02/25 14:14 Guanfacine HCl (Guanfacine Hcl 1 Mg Tab) 1 mg PO BID [facility] Stop: 08/03/25 20:59 Last Admin: 07/07/25 08:39 Dose: 1 mg Hydroxyzine HCl (Hydroxyzine Hcl 25 Mg Tab) 50 mg PO HSZ PRN PRN Reason: Insomnia Stop: 08/02/25 14:14 Hydroxyzine HCl (Hydroxyzine Hcl 25 Mg Tab) 50 mg PO Q4H PRN PRN Reason: Anxiety Stop: 08/02/25 14:14 Last Admin: 07/06/25 23:19 Dose: 50 mg Magnesium Hydroxide (Magnesium Hydroxide Susp 30 Ml Udc) 30 ml PO DAILY PRN PRN Reason: Constipation Stop: 08/02/25 14:14 Mirtazapine (Mirtazapine Tab 15 Mg Tab) 15 mg PO HS [facility] Stop: 08/02/25 21:59 Last Admin: 07/06/25 22:16 Dose: 15 mg Miscellaneous (Remove Nicoderm Patch) 1 each N/A DAILY@0859 [facility] Stop: 08/03/25 08:58 Last Admin: 07/07/25 08:38 Dose: Not Given Nicotine (Nicotine 7 Mg/24 Hr Tdsy) 1 patch TD QAM [facility] Stop: 08/03/25 08:59 Last Admin: 07/07/25 08:39 Dose: Not Given Nicotine Polacrilex (Nicotine Polacrilex 2 Mg Gum) 2 piece MT PRN PRN PRN Reason: Nicotine Withdrawal Symptoms Stop: 08/02/25 14:14 Last Admin: 07/07/25 07:22 Dose: 2 piece Silver Sulfadiazine (Silver Sulfadiazine 1% Cr 400 Gm Jar) 1 appln EXT BID [facility] Stop: 08/05/25 20:59 Last Admin: 07/07/25 08:41 Dose: 1 appln Sodium Chloride (Sodium Chloride 0.65% Na Soln 45 Ml ([place])) 1 - 2 sprays NA PRN PRN PRN Reason: Nasal Dryness/Congestion Stop: 08/02/25 14:14 Venlafaxine HCl (Venlafaxine Hcl 37.5 Mg Tab) 75 mg PO DAILY [facility] Stop: 08/06/25 08:59 Last Admin: 07/07/25 08:40 Dose: 75 mg Mental Health & Subst Abuse Tx Psychiatrist Name of Psychiatrist: Denita Fernando Psychiatrist's Date Of Appointment With Psychiatric Provider: 08/07/25 Time of Appointment with Psychiatrist: 9am Therapist Name of Therapist: None Specialist Employee Labor Relations Name of Specialist Employee Labor Relations: Denies Post Discharge Appointments Primary Care Physician Name Of Family Doctor/PCP: Deja Ruff-[facility] Contact Information Discharge Discharge Address: [address] [place] [id number]
--- NOTE | 2025-07-08 09:56 | Psychiatric Progress Note ---
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 Comes today via ER with similar presentation. She has been smoking marijuana and drinking alcohol. Patient dropped out of school has been feeling extremely fatigued and unmotivated. Chronic suicidal ideation and self-harm urges, mood dysregulation, feelings of emptiness, and hopelessness consistent with borderline personality disorder. 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 She completed the autism quotient (AQ) and score at 24. She is a good candidate for TMS. No metal implants, no alcohol use, likely to respond well to bilateral protocol (to target depression and anxiety). A: Prominent dysphoria, anhedonia, negative intrusive thoughts, and urges to self-harm. Remeron has been helpful for insomnia and Effexor seems to have helped with cognitive abilities. However mood continues to be low and there is some evidence of irritability and negativism that may have worsened since Effexor was introduced. With the rapid increase we will monitor for this concerns. If irritability worsens as Effexor increases and he will need to be discontinued. I had offered lithium in the past and patient declined. She is unwilling to take mood stabilizers in the family of antipsychotics even if there are newer medications she has not tried before. The referral to TMS has been done but there is a wait list for 3 months. Patient still at high risk for self-harm. Inpatient treatment is the least restrictive treatment option. (1) Depression with suicidal ideation: (2) Cannabis use disorder: (3) MDD (major depressive disorder), recurrent severe, without psychosis: (4) Generalized anxiety disorder with panic attacks: (5) Autism spectrum disorder: Provisional Plan 07/08/25 Increase Effexor to 150 mg p.o. every morning starting tomorrow Rest of medications continue without changes Monitor constipation. Patient received 1 dose of lactulose that was ineffective and refused a second dose due to feeling it upset her stomach and she had a small amount of blood in stools but constipation did not resolve. 07/09 Continue medications without changes 07/06/25: - Patient did not try higher dose of Effexor today but will take the higher dose tomorrow morning. Will monitor for GI side effects. - Silvadene topical cream twice daily for self-inflicted superficial burn - Rest of medication continue without changes - Continue suicide precautions 07/05/25: -Increase Effexor to 75mg po tomorrow. -continue rest of medication without changes -continue suicide precautions. 07/04: Patient was admitted to the [facility] ([facility]) on q15 min checks (behavioral with suicide precautions) for safety. The patient will participate in group, recreational, and milieu therapies and will be offered additional individual and family sessions as clinically appropriate. - Start Effexor 37.5 mg p.o. every morning (first dose 07/05) - Discontinue fluoxetine 40mg daily -Increase guanfacine to 1 mg twice daily. Educated about risk for hypotension. Recommended to increase water intake. -Labs: Admission labs reviewed and shared with the patient -Questionnaire: Autism Quotient (score=24) Inventory Assets Strengths: Seeking help, curious, intelligent. Suicide Risk Level Suicide Risk Level: High-Moderate (q15 min suicide checks) Risk Factors Assessment Do You Have Access To A Gun?: No Health Problems: No Mental Health Diagnoses: Yes Substance Use Disorders: Yes Previous Attempt: Yes Family History of Suicide: No Previous Psychiatric Hospitalization: Yes Hopelessness: Yes Protective Factors Assessment Employed: Yes ([employer]) Good Rapport with Provider: Yes Interval History Identifying Information LINDA ROMERO is a 20-year-old F who was admitted on 07/03/25 14:15 on a 201 voluntary commitment for suicidal ideation. Chief Complaint "I have zero appetite and no desire to do anything. I don't know what is wrong this time. Usually I would have rebound by now." Review of Systems Sleep Information Total Hours of Sleep: 6 Meal Information Percent Meal Consumed - Breakfast: 50 Percent Meal Consumed - Lunch: 0 Percent Meal Consumed - Dinner: 50 Nutrition Comment: Patient asked staff to save her sandwich for her. Subjective Subjective Patient was seen & assessed and interval progress reviewed with treatment team Reported she was not able to sleep well because she was having "anxious dreams" and woke up multiple times. Also complained of being constipated with no BM since 07/03 and eating very little due to decreased appetite Patient is very anxious. Shifting position and squeezing a plastic pink elephant while speaking with me complained of feeling sad, hopeless, and worried that "I am never going to get better". Patient reported that she has been able to refrain from acting on urges to self-harm. When asked about her attention span patient reported this seems to be improved from when she arrived at the hospital. We discussed recommendations to optimize Effexor. the medication was recently increased from 37.5-75 without evidence of side effects (patient has had constipation since before Effexor was introduced). It is potentially a very rapid switch from 75mg to 150mgand patient is also on Remeron; therefore, we discussed risk for serotonin syndrome, tremors, GI side effects, and risk for switching to jose in patients who have bipolar spectrum disorder. After weighing in pros and cons patient agreed to increase dose of Effexor to 150 mg starting tomorrow morning. Physical Exam Psychiatric Orientation: alert and oriented x 3 Eye Contact: + fair eye contact Speech: normal rate/rhythm/volume of speech Affect: + flat affect Mood: + depressed mood and + anxious mood Thought Process: linear/logical thought process and + tangential thought process Thought Content: + cognitive distortions, + hopelessness, + worthlessness and + self deprecation Suicidal Thoughts: denies suicidal plan Homicidal Thoughts: denies homicidal thoughts Hallucinations: no auditory hallucinations and no visual hallucinations Cognition: recent memory grossly intact and remote memory grossly intact Estimated Intelligence: average estimated intelligence Insight: good insight Judgment: + limited judgement Vital Signs (Past 24 Hours) Last Vital Signs Temp 36.7 C 07/08/25 06:52 Pulse 70 07/08/25 06:52 Resp 18 07/08/25 06:52 BP 114/73 07/08/25 06:52 Pulse Ox 98 07/08/25 06:52 O2 Del Method Room Air 07/08/25 06:52 Lower limb skin inspected there are oblong red lesions caused by friction no evidence of bleeding. Patient agreed to use topical treatment to prevent infection. Results & Data ([facility]) Current Inpatient Medications Current Inpatient Medications: Current Inpatient Medications Acetaminophen (Acetaminophen 325 Mg Tab) 650 mg PO Q4H PRN PRN Reason: Headache or Minor Fever Stop: 08/02/25 14:14 Al Hydrox/Mg Hydrox/Simethicone (Aluminum/Magnesium Susp 30 Ml Udc) 30 ml PO Q4H PRN PRN Reason: GI Upset Stop: 08/02/25 14:14 Bismuth Subsalicylate (Bismuth Subsalicylate 262 Mg Chew) 2 tab PO Q30M PRN PRN Reason: Loose Stool/Diarrhea Stop: 08/02/25 14:14 Guanfacine HCl (Guanfacine Hcl 1 Mg Tab) 1 mg PO BID HIPOLITO Stop: 08/03/25 20:59 Last Admin: 07/08/25 08:32 Dose: 1 mg Hydroxyzine HCl (Hydroxyzine Hcl 25 Mg Tab) 50 mg PO HSZ PRN PRN Reason: Insomnia Stop: 08/02/25 14:14 Last Admin: 07/07/25 23:18 Dose: 50 mg Hydroxyzine HCl (Hydroxyzine Hcl 25 Mg Tab) 50 mg PO Q4H PRN PRN Reason: Anxiety Stop: 08/02/25 14:14 Last Admin: 07/08/25 08:54 Dose: 50 mg Magnesium Hydroxide (Magnesium Hydroxide Susp 30 Ml Udc) 30 ml PO DAILY PRN PRN Reason: Constipation Stop: 08/02/25 14:14 Mirtazapine (Mirtazapine Tab 15 Mg Tab) 15 mg PO HS HIPOLITO Stop: 08/02/25 21:59 Last Admin: 07/07/25 21:07 Dose: 15 mg Nicotine Polacrilex (Nicotine Polacrilex 2 Mg Gum) 2 piece MT PRN PRN PRN Reason: Nicotine Withdrawal Symptoms Stop: 08/02/25 14:14 Last Admin: 07/08/25 07:08 Dose: 2 piece Silver Sulfadiazine (Silver Sulfadiazine 1% Cr 400 Gm Jar) 1 appln EXT BID HIPOLITO Stop: 08/05/25 20:59 Last Admin: 07/08/25 08:33 Dose: 1 appln Sodium Chloride (Sodium Chloride 0.65% Na Soln 45 Ml ([place])) 1 - 2 sprays NA PRN PRN PRN Reason: Nasal Dryness/Congestion Stop: 08/02/25 14:14 Venlafaxine HCl (Venlafaxine Hcl 37.5 Mg Tab) 75 mg PO DAILY HIPOLITO Stop: 08/06/25 08:59 Last Admin: 07/08/25 08:33 Dose: 75 mg Mental Health & Subst Abuse Tx Psychiatrist Name of Psychiatrist: Denita Fernando Psychiatrist's Date Of Appointment With Psychiatric Provider: 08/07/25 Time of Appointment with Psychiatrist: 9am Therapist Name of Therapist: None Lan/Wan Engineer Name of Lan/Wan Engineer: Denies Post Discharge Appointments Primary Care Physician [facility]: [facility] Information Discharge Discharge Address: [address] [place] [id number]
[2025-07-08] MEDS: LACTULOSE SYRUP 20 GM/30 ML UDC PO ONE (10:44)
[2025-07-09] MEDS: VENLAFAXINE HCL 50 MG TAB PO SCH (09:42)
--- NOTE | 2025-07-09 09:49 | Psychiatric Progress Note ---
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 Comes today via ER with similar presentation. She has been smoking marijuana and drinking alcohol. Patient dropped out of school has been feeling extremely fatigued and unmotivated. Chronic suicidal ideation and self-harm urges, mood dysregulation, feelings of emptiness, and hopelessness consistent with borderline personality disorder. 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 She completed the autism quotient (AQ) and score at 24. She is a good candidate for TMS. No metal implants, no alcohol use, likely to respond well to bilateral protocol (to target depression and anxiety). A: Continues to present with anxiety and dysphoria, anhedonia, negative i ntrusive thoughts, and urges to self-harm. Patient was able to tolerate the rapid increase of Effexor. Denied any side effects. She is unwilling to explore further medication changes. 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 Continues to have lumbar affect and difficulty modulating her emotions when receiving information that is disagreeable to her. (1) Depression with suicidal ideation: (2) Cannabis use disorder: (3) MDD (major depressive disorder), recurrent severe, without psychosis: (4) Generalized anxiety disorder with panic attacks: (5) Autism spectrum disorder: Provisional Plan 07/09/25 Continue medications without changes Effexor 150 mg p.o. every morning Remeron 15 mg at bedtime Guanfacine 1 mg twice daily Monitor mood and behavior Monitor skin 07/08/25 Increase Effexor to 150 mg p.o. every morning starting tomorrow Rest of medications continue without changes Monitor constipation. Patient received 1 dose of lactulose that was ineffective and refused a second dose due to feeling it upset her stomach and she had a small amount of blood in stools but constipation did not resolve. 07/09 Continue medications without changes 07/06/25: - Patient did not try higher dose of Effexor today but will take the higher dose tomorrow morning. Will monitor for GI side effects. - Silvadene topical cream twice daily for self-inflicted superficial burn - Rest of medication continue without changes - Continue suicide precautions 07/05/25: -Increase Effexor to 75mg po tomorrow. -continue rest of medication without changes -continue suicide precautions. 07/04: Patient was admitted to the [facility] ([facility]) on q15 min checks (behavioral with suicide precautions) for safety. The patient will participate in group, recreational, and milieu therapies and will be offered additional individual and family sessions as clinically appropriate. - Start Effexor 37.5 mg p.o. every morning (first dose 07/05) - Discontinue fluoxetine 40mg daily -Increase guanfacine to 1 mg twice daily. Educated about risk for hypotension. Recommended to increase water intake. -Labs: Admission labs reviewed and shared with the patient -Questionnaire: Autism Quotient (score=24) Inventory Assets Strengths: Seeking help, curious, intelligent. Suicide Risk Level Suicide Risk Level: High-Moderate (q15 min suicide checks) Risk Factors Assessment Do You Have Access To A Gun?: No Health Problems: No Mental Health Diagnoses: Yes Substance Use Disorders: Yes Previous Attempt: Yes Family History of Suicide: No Previous Psychiatric Hospitalization: Yes Hopelessness: Yes Protective Factors Assessment Employed: Yes ([employer]) Good Rapport with Provider: Yes Interval History Identifying Information LINDA ROMERO is a 20-year-old F who was admitted on 07/03/25 14:15 on a 201 voluntary commitment for suicidal ideation. Chief Complaint "I am I am able gonna get better?" Review of Systems Sleep Information Total Hours of Sleep: 8 Meal Information Percent Meal Consumed - Breakfast: 50 Percent Meal Consumed - Lunch: 50 Percent Meal Consumed - Dinner: 75 Nutrition Comment: Patient asked staff to save her sandwich for her. Subjective Subjective Patient was seen & assessed and interval progress reviewed with nursing and social work. According to staff patient has been depressed/labile. Rated her mood at 4 out of 10. Told staff she was feeling anxious and tired. During the evaluation patient was Difficult to engage, looked upset, but unwilling to engage in conversation initially. She later approached me with appropriate questions about treatment options but declined all my offers. Patient then approached me third time with questions about TMS and became tearful and loud demanding information that I would not be able to provide in terms of the cost of TMS. She was able to regain her morning a few minutes later. Reported urges to hurt herself but did not act on them. Physical Exam Psychiatric Orientation: alert and oriented x 3 Eye Contact: + fair eye contact Speech: normal rate/rhythm/volume of speech Affect: + flat affect Mood: + depressed mood and + anxious mood Thought Process: linear/logical thought process and + tangential thought process Thought Content: + cognitive distortions, + hopelessness, + worthlessness and + self deprecation Suicidal Thoughts: denies suicidal plan Homicidal Thoughts: denies homicidal thoughts Hallucinations: no auditory hallucinations and no visual hallucinations Cognition: recent memory grossly intact and remote memory grossly intact Estimated Intelligence: average estimated intelligence Insight: + limited insight Judgment: + poor judgement Vital Signs (Past 24 Hours) Last Vital Signs Temp 36.1 C L 07/09/25 06:25 Pulse 70 07/09/25 06:26 Resp 16 07/09/25 06:25 BP 113/70 07/09/25 06:26 Pulse Ox 98 07/08/25 06:52 O2 Del Method Room Air 07/08/25 06:52 Lower limb skin improving with Silvadene no evidence of new self-inflicted lesions Results & Data ([facility]) Current Inpatient Medications Current Inpatient Medications: Current Inpatient Medications Acetaminophen (Acetaminophen 325 Mg Tab) 650 mg PO Q4H PRN PRN Reason: Headache or Minor Fever Stop: 08/02/25 14:14 Al Hydrox/Mg Hydrox/Simethicone (Aluminum/Magnesium Susp 30 Ml Udc) 30 ml PO Q4H PRN PRN Reason: GI Upset Stop: 08/02/25 14:14 Bismuth Subsalicylate (Bismuth Subsalicylate 262 Mg Chew) 2 tab PO Q30M PRN PRN Reason: Loose Stool/Diarrhea Stop: 08/02/25 14:14 Guanfacine HCl (Guanfacine Hcl 1 Mg Tab) 1 mg PO BID HIPOLITO Stop: 08/03/25 20:59 Last Admin: 07/09/25 09:41 Dose: 1 mg Hydroxyzine HCl (Hydroxyzine Hcl 25 Mg Tab) 50 mg PO HSZ PRN PRN Reason: Insomnia Stop: 08/02/25 14:14 Last Admin: 07/07/25 23:18 Dose: 50 mg Hydroxyzine HCl (Hydroxyzine Hcl 25 Mg Tab) 50 mg PO Q4H PRN PRN Reason: Anxiety Stop: 08/02/25 14:14 Last Admin: 07/08/25 08:54 Dose: 50 mg Magnesium Hydroxide (Magnesium Hydroxide Susp 30 Ml Udc) 30 ml PO DAILY PRN PRN Reason: Constipation Stop: 08/02/25 14:14 Mirtazapine (Mirtazapine Tab 15 Mg Tab) 15 mg PO HS HIPOLITO Stop: 08/02/25 21:59 Last Admin: 07/08/25 22:09 Dose: 15 mg Nicotine Polacrilex (Nicotine Polacrilex 2 Mg Gum) 2 piece MT PRN PRN PRN Reason: Nicotine Withdrawal Symptoms Stop: 08/02/25 14:14 Last Admin: 07/09/25 09:43 Dose: 2 piece Silver Sulfadiazine (Silver Sulfadiazine 1% Cr 400 Gm Jar) 1 appln EXT BID HIPOLITO Stop: 08/05/25 20:59 Last Admin: 07/09/25 09:42 Dose: Not Given Sodium Chloride (Sodium Chloride 0.65% Na Soln 45 Ml ([place])) 1 - 2 sprays NA PRN PRN PRN Reason: Nasal Dryness/Congestion Stop: 08/02/25 14:14 Venlafaxine HCl (Venlafaxine Hcl 50 Mg Tab) 150 mg PO DAILY HIPOLITO Stop: 08/08/25 08:59 Last Admin: 07/09/25 09:42 Dose: 150 mg Mental Health & Subst Abuse Tx Psychiatrist Name of Psychiatrist: Denita DaleAngie Fernando Psychiatrist's Date Of Appointment With Psychiatric Provider: 08/07/25 Time of Appointment with Psychiatrist: 9am Therapist Name of Therapist: None Electronic Engineering Draftsperson Name of Electronic Engineering Draftsperson: Denies Post Discharge Appointments Primary Care Physician [facility]: [facility] Contact Information Discharge Discharge Address: [facility] [place] [address]
[2025-07-09 15:23] LABS: Marijuana Quant, GCMS Urine 846 ng/mL (<5)
--- NOTE | 2025-07-10 09:56 | Psychiatric Progress Note ---
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 Comes today via ER with similar presentation. She has been smoking marijuana and drinking alcohol. Patient dropped out of school has been feeling extremely fatigued and unmotivated. Chronic suicidal ideation and self-harm urges, mood dysregulation, feelings of emptiness, and hopelessness consistent with borderline personality disorder. 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 She completed the autism quotient (AQ) and score at 24. She is a good candidate for TMS. No metal implants, no alcohol use, likely to respond well to bilateral protocol (to target depression and anxiety). A: Patient with recent increase of self-injurious behavior. Complained of with anxiety and dysphoria, anhedonia, negative intrusive thoughts, and urges to self-harm. Continues to refuse offer for medication adjustments and declined low-dose Risperdal or Geodon. Inflicted superficial cuts on upper right thigh with tooth brush but unwilling to show me the area. Chronologically, the increased agitation started after raising the dose of Effexor to 150mg (which was a potential outcome discussed with the patient prior to the increase). Will lower back to 75mg. (1) Depression with suicidal ideation: (2) Cannabis use disorder: (3) MDD (major depressive disorder), recurrent severe, without psychosis: (4) Generalized anxiety disorder with panic attacks: (5) Autism spectrum disorder: Provisional Plan 07/10/25 Lower Effexor to 75mg po qam Continue rest of medications without change Monitor mood and behavior Will activate 1:1 if patient has a new episode of self harm 07/09/25 Continue medications without changes Effexor 150 mg p.o. every morning Remeron 15 mg at bedtime Guanfacine 1 mg twice daily Monitor mood and behavior Monitor skin 07/08/25 Increase Effexor to 150 mg p.o. every morning starting tomorrow Rest of medications continue without changes Monitor constipation. Patient received 1 dose of lactulose that was ineffective and refused a second dose due to feeling it upset her stomach and she had a small amount of blood in stools but constipation did not resolve. 07/09 Continue medications without changes 07/06/25: - Patient did not try higher dose of Effexor today but will take the higher dose tomorrow morning. Will monitor for GI side effects. - Silvadene topical cream twice daily for self-inflicted superficial burn - Rest of medication continue without changes - Continue suicide precautions 07/05/25: -Increase Effexor to 75mg po tomorrow. -continue rest of medication without changes -continue suicide precautions. 07/04: Patient was admitted to the [facility] ([facility] unit) on q15 min checks (behavioral with suicide precautions) for safety. The patient will participate in group, recreational, and milieu therapies and will be offered additional individual and family sessions as clinically appropriate. - Start Effexor 37.5 mg p.o. every morning (first dose 07/05) - Discontinue fluoxetine 40mg daily -Increase guanfacine to 1 mg twice daily. Educated about risk for hypotension. Recommended to increase water intake. -Labs: Admission labs reviewed and shared with the patient -Questionnaire: Autism Quotient (score=24) Inventory Assets Strengths: Seeking help, curious, intelligent. Suicide Risk Level Suicide Risk Level: High-Moderate (q15 min suicide checks) Risk Factors Assessment Do You Have Access To A Gun?: No Health Problems: No Mental Health Diagnoses: Yes Substance Use Disorders: Yes Previous Attempt: Yes Family History of Suicide: No Previous Psychiatric Hospitalization: Yes Hopelessness: Yes Protective Factors Assessment Employed: Yes ([employer]) Good Rapport with Provider: Yes Interval History Identifying Information LINDA ROMERO is a 20-year-old F who was admitted on 07/03/25 14:15 on a 201 voluntary commitment for suicidal ideation. Chief Complaint "I much rather fixate on the physical pain than on my brain. I want people to give up so I can give up. I know I am a lot. I know I am a conundrum. I've told by everybody." She reported that she has been anxious since before the medication changes. Sometimes feels like Prozac was helping her anxiety better but other times states Effexor is better. Patient told me "It is my natural brain that is like this, I've been having this anxiety since my last year in High school." Review of Systems Sleep Information Total Hours of Sleep: 7.5 Meal Information Percent Meal Consumed - Breakfast: 75 Percent Meal Consumed - Lunch: 0 Percent Meal Consumed - Dinner: 50 Nutrition Comment: Patient asked staff to save her sandwich for her. Subjective Subjective Patient was seen & assessed and interval progress reviewed with treatment team. Physical Exam Psychiatric Orientation: alert and oriented x 3 Eye Contact: + fair eye contact Speech: normal rate/rhythm/volume of speech Affect: + flat affect Mood: + depressed mood and + anxious mood Thought Process: linear/logical thought process and + tangential thought process Thought Content: + cognitive distortions, + hopelessness, + worthlessness and + self deprecation Suicidal Thoughts: denies suicidal plan Homicidal Thoughts: denies homicidal thoughts Hallucinations: no auditory hallucinations and no visual hallucinations Cognition: recent memory grossly intact and remote memory grossly intact Estimated Intelligence: average estimated intelligence Insight: good insight and + limited insight Judgment: + limited judgement and + poor judgement Vital Signs (Past 24 Hours) Last Vital Signs Temp 36.2 C L 07/10/25 06:25 Pulse 74 07/10/25 06:26 Resp 16 07/10/25 06:25 BP 117/78 07/10/25 06:26 Pulse Ox 98 07/08/25 06:52 O2 Del Method Room Air 07/08/25 06:52 Lower limb skin improving with Silvadene no evidence of new self-inflicted lesions Results & Data ([facility]) Laboratory Results Laboratory Results - last 24 hr 07/03/25 10:30 U Marijuana THC Carboxy 846 H Drug Screen Comment SEE NOTE Current Inpatient Medications Current Inpatient Medications: Current Inpatient Medications Acetaminophen (Acetaminophen 325 Mg Tab) 650 mg PO Q4H PRN PRN Reason: Headache or Minor Fever Stop: 08/02/25 14:14 Al Hydrox/Mg Hydrox/Simethicone (Aluminum/Magnesium Susp 30 Ml Udc) 30 ml PO Q4H PRN PRN Reason: GI Upset Stop: 08/02/25 14:14 Bismuth Subsalicylate (Bismuth Subsalicylate 262 Mg Chew) 2 tab PO Q30M PRN PRN Reason: Loose Stool/Diarrhea Stop: 08/02/25 14:14 Guanfacine HCl (Guanfacine Hcl 1 Mg Tab) 1 mg PO BID HIPOLITO Stop: 08/03/25 20:59 Last Admin: 07/10/25 08:18 Dose: 1 mg Hydroxyzine HCl (Hydroxyzine Hcl 25 Mg Tab) 50 mg PO HSZ PRN PRN Reason: Insomnia Stop: 08/02/25 14:14 Last Admin: 07/07/25 23:18 Dose: 50 mg Hydroxyzine HCl (Hydroxyzine Hcl 25 Mg Tab) 50 mg PO Q4H PRN PRN Reason: Anxiety Stop: 08/02/25 14:14 Last Admin: 07/09/25 10:16 Dose: 50 mg Magnesium Hydroxide (Magnesium Hydroxide Susp 30 Ml Udc) 30 ml PO DAILY PRN PRN Reason: Constipation Stop: 08/02/25 14:14 Mirtazapine (Mirtazapine Tab 15 Mg Tab) 15 mg PO HS HIPOLITO Stop: 08/02/25 21:59 Last Admin: 07/09/25 22:03 Dose: 15 mg Nicotine Polacrilex (Nicotine Polacrilex 2 Mg Gum) 2 piece MT PRN PRN PRN Reason: Nicotine Withdrawal Symptoms Stop: 08/02/25 14:14 Last Admin: 07/10/25 06:32 Dose: 2 piece Silver Sulfadiazine (Silver Sulfadiazine 1% Cr 400 Gm Jar) 1 appln EXT BID HIPOLITO Stop: 08/05/25 20:59 Last Admin: 07/10/25 08:27 Dose: 1 appln Sodium Chloride (Sodium Chloride 0.65% Na Soln 45 Ml ([place])) 1 - 2 sprays NA PRN PRN PRN Reason: Nasal Dryness/Congestion Stop: 08/02/25 14:14 Venlafaxine HCl (Venlafaxine Hcl 50 Mg Tab) 150 mg PO DAILY HIPOLITO Stop: 08/08/25 08:59 Last Admin: 07/10/25 08:18 Dose: 150 mg Mental Health & Subst Abuse Tx Psychiatrist Name of Psychiatrist: Denita Fernando Psychiatrist's Date Of Appointment With Psychiatric Provider: 08/07/25 Time of Appointment with Psychiatrist: 9am Therapist Name of Therapist: Aileen Gomez Therapist's Date of Therapist Appointment: 07/21/25 Time of Therapist Appointment: 8:00 AM Therapy Appointment Comment: Call or email [email or web address] CC info prior to appoint Technical Sme Name of Technical Sme: Denies Post Discharge Appointments Primary Care Physician [facility]: [facility] Contact Information Discharge Discharge Address: [address] [facility], [place] [address]
--- NOTE | 2025-07-11 09:18 | Psychiatric Progress Note ---
Date of Service July 11, 2025 Impression / Recommendations Impression Diagnostically her chronic suicidal ideation and self-harm urges, mood dysregulation, feelings of emptiness, and hopelessness consistent with borderline personality disorder. Low suspicion for ASD given close social connections, no evidence for restricted interests or social-communication deficits. A: Ongoing depression, anxiety and self-harm likely due to borderline personality disorder with superimposed depression and anxiety. Provided psychoeducation about BPD and why this likely explains her poor long-term response to medication. Also spent a lot of time discussing what we know about long-term safety data for SSRIs and potential benefits for anxiety. Reviewed typical time course and expected treatment response to DBT and encouraged consideration for participating in another structured DBT PHP if her symptoms of self-harm and mood lability persist. She requested additional medication to help with anxiety, discussed options. Reviewed risks/benefits/alternatives. She consents to starting gabapentin for off-label use for anxiety. Reviewed side effects including but not limited to fatal respiratory suppression if combined with alcohol, sedation. Reviewed that gabapentin is unlikely to offer any benefit for BPD symptoms. Overall, I spent a total of 50 minutes on this case including meeting with the patient, reviewing the chart, nursing report, orders, and documentation. (1) Borderline personality disorder: (2) Generalized anxiety disorder with panic attacks: (3) MDD (major depressive disorder), recurrent severe, without psychosis: (4) Depression with suicidal ideation: (5) Cannabis use disorder: Plan 07/11/2025: -Start gabapentin 300mg TID -Provided with BPD screening tool 07/10/25 Continue medications without change Monitor mood and behavior Will activate 1:1 if patient has a new episode of self harm 07/09/25 Continue medications without changes Effexor 150 mg p.o. every morning Remeron 15 mg at bedtime Guanfacine 1 mg twice daily Monitor mood and behavior Monitor skin 07/08/25 Increase Effexor to 150 mg p.o. every morning starting tomorrow Rest of medications continue without changes Monitor constipation. Patient received 1 dose of lactulose that was ineffective and refused a second dose due to feeling it upset her stomach and she had a small amount of blood in stools but constipation did not resolve. 07/09 Continue medications without changes 07/06/25: - Patient did not try higher dose of Effexor today but will take the higher dose tomorrow morning. Will monitor for GI side effects. - Silvadene topical cream twice daily for self-inflicted superficial burn - Rest of medication continue without changes - Continue suicide precautions 07/05/25: -Increase Effexor to 75mg po tomorrow. -continue rest of medication without changes -continue suicide precautions. 07/04: Patient was admitted to the [facility] ([facility]) on q15 min checks (behavioral with suicide precautions) for safety. The patient will participate in group, recreational, and milieu therapies and will be offered additional individual and family sessions as clinically appropriate. - Start Effexor 37.5 mg p.o. every morning (first dose 07/05) - Discontinue fluoxetine 40mg daily -Increase guanfacine to 1 mg twice daily. Educated about risk for hypotension. Recommended to increase water intake. -Labs: Admission labs reviewed and shared with the patient -Questionnaire: Autism Quotient (score=24) Inventory Assets Strengths: Seeking help, curious, intelligent. Needs: safety and stabilization, medication adjustment, additional coping skills, increased outpatient services Suicide Risk Level Suicide Risk Level: High-Moderate (q15 min suicide checks) (ongoing depression, anxiety, self-harm and SI with mood lability but feels safe in the hospital and feels able to ask for support ) Risk Factors Assessment Male: No Do You Have Access To A Gun?: No Health Problems: No Mental Health Diagnoses: Yes Substance Use Disorders: Yes Previous Attempt: Yes Family History of Suicide: No Previous Psychiatric Hospitalization: Yes Hopelessness: Yes Protective Factors Assessment Employed: Yes ([employer]) Stable Relationships: No Supportive Family: Yes Good Rapport with Provider: Yes Interval History Identifying Information LINDA ROMERO is a 20-year-old F who was admitted on 07/03/25 14:15 on a 201 voluntary commitment for suicidal ideation. Chief Complaint "I can't stay on medications". Review of Systems Sleep Information Total Hours of Sleep: 4.75 Meal Information Percent Meal Consumed - Breakfast: 75 Percent Meal Consumed - Lunch: 75 Percent Meal Consumed - Dinner: 30 Subjective Subjective Patient was seen & assessed and interval progress reviewed with nursing. Continues to struggle with self-harm urges. Yesterday she utilized the quiet room to rest when she had increased self-harm urges. In the late afternoon she was smiling and interactive. Today she shows significant emotional lability shifting from anxious to tearful to frustration to elevated mood when a friend visited. She denies any current medication side effects but expresses significant concerns about long-term medication use, stating she does not want to take psychiatric medications for her entire life and believes they should not be taken for more than 5 years due to potential harm. She reports having been on 15 different psychiatric medications throughout her treatment history, starting in 10th or 11th grade, and describes a pattern where medications initially help but then "their effects all wear off" while she continues taking them. She reports ongoing severe anxiety, and describes it as lifelong and states "once my anxiety's up, it stays up." She reports that her anxiety became more difficult to manage after losing her identity and meaning of gymnastics due to her eating disorder, depression, and anxiety. She describes ongoing self-harming behaviors, including an episode yesterday, but denies any today. She identifies self-harming to manage anxiety or when she "just wants to feel the pain." She reports that people become overwhelmed when she has visible panic attacks and that her depression and mood swings have affected her relationships, causing her to "shut down" and leading to conflicts with roommates. She completed 3 weeks of a DBT program in [place] but then moved back to [place] as she had an apartment lease here. Has since had difficulties with roommates due to her depression and mood swings. She is considering moving back to [place] to live with family, including her mother, father, sister, cousin, and two children, though she describes this potential living situation as "chaotic." She reports feeling exhausted with herself and with people not knowing what to do with her. She disputes her borderline personality disorder diagnosis, stating she doesn't believe she has BPD and thinks she is "very emotionally dysregulated" but not due to BPD. She mentions that every provider except one she met in March has diagnosed her with BPD, while the March provider was exploring ADHD, OCD, and autism. She reports that her emotional expression and honesty increased in college, which she believes was "too much" for others and contributed to relationship difficulties. She would like to start another medication to help with anxiety. Physical Exam Psychiatric Orientation: alert and oriented x 3 Eye Contact: good eye contact Speech: normal rate/rhythm/volume of speech Affect: + anxious affect, + tearful affect, + labile affect and + angry affect Mood: + depressed mood and + anxious mood Thought Process: + circumstantial thought process Thought Content: + cognitive distortions, + hopelessness and + worthlessness Suicidal Thoughts: denies suicidal plan and denies suicidal intent; + reports suicidal thoughts Homicidal Thoughts: denies homicidal thoughts Hallucinations: no auditory hallucinations and no visual hallucinations Cognition: recent memory grossly intact and remote memory grossly intact Estimated Intelligence: average estimated intelligence Insight: + limited insight Judgment: + limited judgement Vital Signs (Past 24 Hours) Last Vital Signs Temp 36.2 C L 07/11/25 06:32 Pulse 74 07/10/25 06:26 Resp 16 07/11/25 06:32 BP 113/78 07/11/25 06:32 Pulse Ox 95 07/11/25 06:32 O2 Del Method Room Air 07/11/25 06:32 Results & Data ([facility]) Current Inpatient Medications Current Inpatient Medications: Current Inpatient Medications Acetaminophen (Acetaminophen 325 Mg Tab) 650 mg PO Q4H PRN PRN Reason: Headache or Minor Fever Stop: 08/02/25 14:14 Al Hydrox/Mg Hydrox/Simethicone (Aluminum/Magnesium Susp 30 Ml Udc) 30 ml PO Q4H PRN PRN Reason: GI Upset Stop: 08/02/25 14:14 Bismuth Subsalicylate (Bismuth Subsalicylate 262 Mg Chew) 2 tab PO Q30M PRN PRN Reason: Loose Stool/Diarrhea Stop: 08/02/25 14:14 Guanfacine HCl (Guanfacine Hcl 1 Mg Tab) 1 mg PO BID HIPOLITO Stop: 08/03/25 20:59 Last Admin: 07/10/25 22:03 Dose: 1 mg Hydroxyzine HCl (Hydroxyzine Hcl 25 Mg Tab) 50 mg PO HSZ PRN PRN Reason: Insomnia Stop: 08/02/25 14:14 Last Admin: 07/07/25 23:18 Dose: 50 mg Hydroxyzine HCl (Hydroxyzine Hcl 25 Mg Tab) 50 mg PO Q4H PRN PRN Reason: Anxiety Stop: 08/02/25 14:14 Last Admin: 07/10/25 14:15 Dose: 50 mg Magnesium Hydroxide (Magnesium Hydroxide Susp 30 Ml Udc) 30 ml PO DAILY PRN PRN Reason: Constipation Stop: 08/02/25 14:14 Mirtazapine (Mirtazapine Tab 15 Mg Tab) 15 mg PO HS HIPOLITO Stop: 08/02/25 21:59 Last Admin: 07/10/25 22:03 Dose: 15 mg Nicotine Polacrilex (Nicotine Polacrilex 2 Mg Gum) 2 piece MT PRN PRN PRN Reason: Nicotine Withdrawal Symptoms Stop: 08/02/25 14:14 Last Admin: 07/11/25 06:34 Dose: 2 piece Silver Sulfadiazine (Silver Sulfadiazine 1% Cr 400 Gm Jar) 1 appln EXT BID HIPOLITO Stop: 08/05/25 20:59 Last Admin: 07/11/25 09:08 Dose: 1 appln Sodium Chloride (Sodium Chloride 0.65% Na Soln 45 Ml ([place])) 1 - 2 sprays NA PRN PRN PRN Reason: Nasal Dryness/Congestion Stop: 08/02/25 14:14 Venlafaxine HCl (Venlafaxine Hcl 37.5 Mg Tab) 75 mg PO DAILY HIPOLITO Stop: 08/10/25 08:59 Mental Health & Subst Abuse Tx Psychiatrist Name of Psychiatrist: Denita Fernando Psychiatrist's Date Of Appointment With Psychiatric Provider: 08/07/25 Time of Appointment with Psychiatrist: 9am Therapist Name of Therapist: Aileen Gomez Therapist's Date of Therapist Appointment: 07/21/25 Time of Therapist Appointment: 8:00 AM Therapy Appointment Comment: Call or email [email or web address]/ CC info prior to appoint Metallography Teacher Name of Metallography Teacher: Denies Post Discharge Appointments Primary Care Physician Name Of Family Doctor/PCP: Deja Ruff[facility] Contact Information Discharge Discharge Address: [address] [place] [address]
[2025-07-11] MEDS: VENLAFAXINE HCL 50 MG TAB PO SCH (09:31)
[2025-07-11] MEDS: GABAPENTIN 300 MG CAP PO SCH (14:23)
[2025-07-11] MEDS: VENLAFAXINE HCL 37.5 MG TAB PO SCH (15:17)
--- NOTE | 2025-07-12 08:21 | Psychiatric Progress Note ---
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 Comes today via ER with similar presentation. She has been smoking marijuana and drinking alcohol. Patient dropped out of school has been feeling extremely fatigued and unmotivated. Chronic suicidal ideation and self-harm urges, mood dysregulation, feelings of emptiness, and hopelessness consistent with borderline personality disorder. 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 She completed the autism quotient (AQ) and score at 24. She is a good candidate for TMS. No metal implants, no alcohol use, likely to respond well to bilateral protocol (to target depression and anxiety). A: Ongoing depression and anxiety but with some improvement today and lessening of SI. Finding gabapentin helpful. Ongoing psychoeducation about role of inpatient hospitalization, coping skills, reviewed CBT strategies, and discussed ways she hopes to make changes to her routine and life in the future. She reflects on positive qualities in herself and that she is hopeful about benefits of therapy moving forward. Exploring potential return to [place] with family in which case SW to explore referrals to providers in [facility]. Overall, I spent a total of 50 minutes on this case including meeting with the patient, reviewing the chart, nursing report, multidisciplinary team meeting, orders, and documentation. (1) MDD (major depressive disorder), recurrent severe, without psychosis: (2) Borderline personality disorder: (3) Depression with suicidal ideation: (4) Generalized anxiety disorder with panic attacks: (5) Cannabis use disorder: Plan 07/11/2025: -Start gabapentin 300mg TID -Provided with BPD screening tool 07/10/25 Continue rest of medications without change Monitor mood and behavior Will activate 1:1 if patient has a new episode of self harm 07/09/25 Continue medications without changes Effexor 150 mg p.o. every morning Remeron 15 mg at bedtime Guanfacine 1 mg twice daily Monitor mood and behavior Monitor skin 07/08/25 Increase Effexor to 150 mg p.o. every morning starting tomorrow Rest of medications continue without changes Monitor constipation. Patient received 1 dose of lactulose that was ineffective and refused a second dose due to feeling it upset her stomach and she had a small amount of blood in stools but constipation did not resolve. 07/09 Continue medications without changes 07/06/25: - Patient did not try higher dose of Effexor today but will take the higher dose tomorrow morning. Will monitor for GI side effects. - Silvadene topical cream twice daily for self-inflicted superficial burn - Rest of medication continue without changes - Continue suicide precautions 07/05/25: -Increase Effexor to 75mg po tomorrow. -continue rest of medication without changes -continue suicide precautions. 07/04: Patient was admitted to the [facility] ([facility]) on q15 min checks (behavioral with suicide precautions) for safety. The patient will participate in group, recreational, and milieu therapies and will be offered additional individual and family sessions as clinically appropriate. - Start Effexor 37.5 mg p.o. every morning (first dose 07/05) - Discontinue fluoxetine 40mg daily -Increase guanfacine to 1 mg twice daily. Educated about risk for hypotension. Recommended to increase water intake. -Labs: Admission labs reviewed and shared with the patient -Questionnaire: Autism Quotient (score=24) Inventory Assets Strengths: Seeking help, curious, intelligent. Needs: safety and stabilization, medication adjustment, additional coping skills, increased outpatient services Suicide Risk Level Suicide Risk Level: Moderate (q15 min suicide checks) (ongoing depression, anxiety, self-harm but SI lessening, anxiety lessening and feels safe in the hospital and feels able to ask for support ) Risk Factors Assessment Male: No Do You Have Access To A Gun?: No Health Problems: No Mental Health Diagnoses: Yes Substance Use Disorders: Yes Previous Attempt: Yes Family History of Suicide: No Previous Psychiatric Hospitalization: Yes Hopelessness: Yes Protective Factors Assessment Employed: Yes ([employer]) Stable Relationships: No Supportive Family: Yes Good Rapport with Provider: Yes Interval History Identifying Information LINDA ROMERO is a 20-year-old F who was admitted on 07/03/25 14:15 on a 201 voluntary commitment for suicidal ideation. Chief Complaint "Depressed and anxious". Review of Systems Sleep Information Total Hours of Sleep: 5.5 Meal Information Percent Meal Consumed - Breakfast: 75 Percent Meal Consumed - Lunch: 30 Percent Meal Consumed - Dinner: 50 Subjective Subjective Patient was seen & assessed and interval progress reviewed with nursing and social work. Watched a movie with peers. Continues to have self-harm urges but didn't act on this. Today reports her mood is "depressed and anxious" but she feels the gabapentin helped "I felt a little calmer and it helped a lot with sleep". She wonders why long-term inpatient hospitalization isn't recommended, reviewed that BPD symptoms including self-harm are unlikely to improve with inpatient hospitalization so goal of focusing on depression and anxiety and setting up outpatient treatment ideally with DBT or CBT focus. She is very interested in CBT and reflects that "In the past I did not really try at therapy" and "if I d id try it CBT it would help I think". She reflects on needing to find a routine again as she has done well in the past when she has had a good routine with social support and things that bring her a sense of meaning. Today reports her SI is "minimal" but ongoing self-harm urges. She is thinking she likely should return to [place] to be around her family for support should symptoms worsen again. She feels as though "I have been in constant burnout since I sophomore fall with too many emotions". We reviewed the [facility] BPD screen, she continues to feel that this may not be an accurate diagnosis but agrees there is some possible evidence for this and we explore overlap of BPD symptoms with major depression and BEN. She denies any medication side effects, likes her current regimen. Physical Exam Psychiatric Orientation: alert and oriented x 3 Eye Contact: good eye contact Speech: normal rate/rhythm/volume of speech Affect: + anxious affect, + labile affect and + irritable affect Mood: + depressed mood, + anxious mood and + irritable mood Thought Process: + circumstantial thought process Thought Content: + cognitive distortions and reality based without delusions Suicidal Thoughts: denies suicidal plan and denies suicidal intent; + reports suicidal thoughts ("minimal" today) Homicidal Thoughts: denies homicidal thoughts Hallucinations: no auditory hallucinations and no visual hallucinations Cognition: recent memory grossly intact and remote memory grossly intact Estimated Intelligence: average estimated intelligence Insight: + limited insight Judgment: + limited judgement Vital Signs (Past 24 Hours) Last Vital Signs Temp 36.2 C L 07/11/25 06:32 Pulse 83 07/12/25 06:24 Resp 16 07/12/25 06:24 BP 104/69 07/12/25 06:25 Pulse Ox 99 07/12/25 06:24 O2 Del Method Room Air 07/12/25 06:24 Results & Data ([facility]) Current Inpatient Medications Current Inpatient Medications: Current Inpatient Medications Acetaminophen (Acetaminophen 325 Mg Tab) 650 mg PO Q4H PRN PRN Reason: Headache or Minor Fever Stop: 08/02/25 14:14 Al Hydrox/Mg Hydrox/Simethicone (Aluminum/Magnesium Susp 30 Ml Udc) 30 ml PO Q4H PRN PRN Reason: GI Upset Stop: 08/02/25 14:14 Bismuth Subsalicylate (Bismuth Subsalicylate 262 Mg Chew) 2 tab PO Q30M PRN PRN Reason: Loose Stool/Diarrhea Stop: 08/02/25 14:14 Gabapentin (Gabapentin 300 Mg Cap) 300 mg PO TID HIPOLITO Stop: 08/10/25 13:59 Last Admin: 07/11/25 21:57 Dose: 300 mg Guanfacine HCl (Guanfacine Hcl 1 Mg Tab) 1 mg PO BID HIPOLITO Stop: 08/03/25 20:59 Last Admin: 07/11/25 21:57 Dose: 1 mg Hydroxyzine HCl (Hydroxyzine Hcl 25 Mg Tab) 50 mg PO HSZ PRN PRN Reason: Insomnia Stop: 08/02/25 14:14 Last Admin: 07/07/25 23:18 Dose: 50 mg Hydroxyzine HCl (Hydroxyzine Hcl 25 Mg Tab) 50 mg PO Q4H PRN PRN Reason: Anxiety Stop: 08/02/25 14:14 Last Admin: 07/10/25 14:15 Dose: 50 mg Magnesium Hydroxide (Magnesium Hydroxide Susp 30 Ml Udc) 30 ml PO DAILY PRN PRN Reason: Constipation Stop: 08/02/25 14:14 Mirtazapine (Mirtazapine Tab 15 Mg Tab) 15 mg PO HS HIPOLITO Stop: 08/02/25 21:59 Last Admin: 07/11/25 21:57 Dose: 15 mg Nicotine Polacrilex (Nicotine Polacrilex 2 Mg Gum) 2 piece MT PRN PRN PRN Reason: Nicotine Withdrawal Symptoms Stop: 08/02/25 14:14 Last Admin: 07/11/25 21:59 Dose: 2 piece Silver Sulfadiazine (Silver Sulfadiazine 1% Cr 400 Gm Jar) 1 appln EXT BID HIPOLITO Stop: 08/05/25 20:59 Last Admin: 07/11/25 21:57 Dose: 1 appln Sodium Chloride (Sodium Chloride 0.65% Na Soln 45 Ml ([place])) 1 - 2 sprays NA PRN PRN PRN Reason: Nasal Dryness/Congestion Stop: 08/02/25 14:14 Venlafaxine HCl (Venlafaxine Hcl 50 Mg Tab) 150 mg PO DAILY HIPOLITO Stop: 08/10/25 09:29 Last Admin: 07/11/25 09:31 Dose: 150 mg Mental Health & Subst Abuse Tx Psychiatrist Name of Psychiatrist: Denita Fernando Psychiatrist's Date Of Appointment With Psychiatric Provider: 08/07/25 Time of Appointment with Psychiatrist: 9am Therapist Name of Therapist: Aileen Gomez Therapist's Date of Therapist Appointment: 07/21/25 Time of Therapist Appointment: 8:00 AM Therapy Appointment Comment: Call or email [email or web address] CC info prior to appoint Teleprinter Name of Teleprinter: Denies Post Discharge Appointments Primary Care Physician [facility]: [facility] Contact Information Discharge Discharge Address: [address] [address]
--- NOTE | 2025-07-13 09:05 | Psychiatric Progress Note ---
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 Comes today via ER with similar presentation. She has been smoking marijuana and drinking alcohol. Patient dropped out of school has been feeling extremely fatigued and unmotivated. Chronic suicidal ideation and self-harm urges, mood dysregulation, feelings of emptiness, and hopelessness consistent with borderline personality disorder. 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 She completed the autism quotient (AQ) and score at 24. She is a good candidate for TMS. No metal implants, no alcohol use, likely to respond well to bilateral protocol (to target depression and anxiety). A: Mood improving with no SI today and significant lessening of self-harm urges, seemingly in response to feeling supported by her parents and planning to return home to live with them. Continues to tolerate her current medications well without side effects. SW completed referral for DBT IOP in [place] but awaiting response. Overall, I spent a total of 37 minutes on this case including meeting with the patient, reviewing the chart, nursing report, multidisciplinary team meeting, orders, and documentation. (1) MDD (major depressive disorder), recurrent severe, without psychosis: (2) Borderline personality disorder: (3) Depression with suicidal ideation: (4) Generalized anxiety disorder with panic attacks: (5) Cannabis use disorder: Plan 07/13/2025: -Continue current medications and tx plan 07/12/2025: -Continue current medications and tx plan 07/11/2025: -Start gabapentin 300mg TID -Provided with BPD screening tool 07/10/25 Continue rest of medications without change Monitor mood and behavior Will activate 1:1 if patient has a new episode of self harm 07/09/25 Continue medications without changes Effexor 150 mg p.o. every morning Remeron 15 mg at bedtime Guanfacine 1 mg twice daily Monitor mood and behavior Monitor skin 07/08/25 Increase Effexor to 150 mg p.o. every morning starting tomorrow Rest of medications continue without changes Monitor constipation. Patient received 1 dose of lactulose that was ineffective and refused a second dose due to feeling it upset her stomach and she had a small amount of blood in stools but constipation did not resolve. 07/09 Continue medications without changes 07/06/25: - Patient did not try higher dose of Effexor today but will take the higher dose tomorrow morning. Will monitor for GI side effects. - Silvadene topical cream twice daily for self-inflicted superficial burn - Rest of medication continue without changes - Continue suicide precautions 07/05/25: -Increase Effexor to 75mg po tomorrow. -continue rest of medication without changes -continue suicide precautions. 07/04: Patient was admitted to the [facility] ([facility]) on q15 min checks (behavioral with suicide precautions) for safety. The patient will participate in group, recreational, and milieu therapies and will be offered additional individual and family sessions as clinically appropriate. - Start Effexor 37.5 mg p.o. every morning (first dose 07/05) - Discontinue fluoxetine 40mg daily -Increase guanfacine to 1 mg twice daily. Educated about risk for hypotension. Recommended to increase water intake. -Labs: Admission labs reviewed and shared with the patient -Questionnaire: Autism Quotient (score=24) Inventory Assets Strengths: Seeking help, curious, intelligent. Needs: safety and stabilization, medication adjustment, additional coping skills, increased outpatient services Suicide Risk Level Suicide Risk Level: Moderate (q15 min suicide checks) (ongoing depression, anxiety but mood improving, denies SI, lessening self-harm urges, and feels safe in the hospital and feels able to ask for support ) Risk Factors Assessment Male: No Do You Have Access To A Gun?: No Health Problems: No Mental Health Diagnoses: Yes Substance Use Disorders: Yes Previous Attempt: Yes Family History of Suicide: No Previous Psychiatric Hospitalization: Yes Hopelessness: Yes Protective Factors Assessment Employed: Yes ([employer]) Stable Relationships: No Supportive Family: Yes Good Rapport with Provider: Yes Interval History Identifying Information LINDA ROMERO is a 20-year-old F who was admitted on 07/03/25 14:15 on a 201 voluntary commitment for suicidal ideation. Chief Complaint "Ok". Review of Systems Sleep Information Total Hours of Sleep: 6 Meal Information Percent Meal Consumed - Breakfast: 50 Percent Meal Consumed - Lunch: 50 Percent Meal Consumed - Dinner: 50 Subjective Subjective Patient was seen & assessed and interval progress reviewed with treatment team. Had a meeting with parents. Showered last evening. Rated her mood "scared, guilty and weak". Today she reports her mood is "ok" and denies SI noting "only passive". She feels her self-harm urges are reducing noting "they're less". She feels ready for discharge tomorrow citing having support of her parents and making decision to return home and that "talking to my parents helped me feel better". She feels that "my mood's been pretty stable". She likes her current medications and feels that "gabapentin does seem to help" with her anxiety and sleep. She's future- oriented about getting home in time for gi. Physical Exam Psychiatric Orientation: alert and oriented x 3 Eye Contact: good eye contact Speech: normal rate/rhythm/volume of speech Affect: euthymic affect Mood: + depressed mood and + anxious mood Thought Process: goal directed thought process Thought Content: reality based without delusions Suicidal Thoughts: denies suicidal thoughts, denies suicidal plan and denies suicidal intent Homicidal Thoughts: denies homicidal thoughts Hallucinations: no auditory hallucinations and no visual hallucinations Cognition: recent memory grossly intact and remote memory grossly intact Estimated Intelligence: average estimated intelligence Insight: + fair insight Judgment: + fair judgement Vital Signs (Past 24 Hours) Last Vital Signs Temp 36.7 C 07/13/25 07:07 Pulse 60 07/13/25 07:07 Resp 20 07/13/25 07:07 BP 108/77 07/13/25 07:08 Pulse Ox 96 07/13/25 07:07 O2 Del Method Room Air 07/13/25 07:08 Results & Data ([facility]) Current Inpatient Medications Current Inpatient Medications: Current Inpatient Medications Acetaminophen (Acetaminophen 325 Mg Tab) 650 mg PO Q4H PRN PRN Reason: Headache or Minor Fever Stop: 08/02/25 14:14 Al Hydrox/Mg Hydrox/Simethicone (Aluminum/Magnesium Susp 30 Ml Udc) 30 ml PO Q4H PRN PRN Reason: GI Upset Stop: 08/02/25 14:14 Bismuth Subsalicylate (Bismuth Subsalicylate 262 Mg Chew) 2 tab PO Q30M PRN PRN Reason: Loose Stool/Diarrhea Stop: 08/02/25 14:14 Gabapentin (Gabapentin 300 Mg Cap) 300 mg PO TID HIPOLITO Stop: 08/10/25 13:59 Last Admin: 07/13/25 08:42 Dose: 300 mg Guanfacine HCl (Guanfacine Hcl 1 Mg Tab) 1 mg PO BID HIPOLITO Stop: 08/03/25 20:59 Last Admin: 07/13/25 08:42 Dose: 1 mg Hydroxyzine HCl (Hydroxyzine Hcl 25 Mg Tab) 50 mg PO HSZ PRN PRN Reason: Insomnia Stop: 08/02/25 14:14 Last Admin: 07/07/25 23:18 Dose: 50 mg Hydroxyzine HCl (Hydroxyzine Hcl 25 Mg Tab) 50 mg PO Q4H PRN PRN Reason: Anxiety Stop: 08/02/25 14:14 Last Admin: 07/12/25 11:26 Dose: 50 mg Magnesium Hydroxide (Magnesium Hydroxide Susp 30 Ml Udc) 30 ml PO DAILY PRN PRN Reason: Constipation Stop: 08/02/25 14:14 Mirtazapine (Mirtazapine Tab 15 Mg Tab) 15 mg PO HS HIPOLITO Stop: 08/02/25 21:59 Last Admin: 07/12/25 22:00 Dose: 15 mg Nicotine Polacrilex (Nicotine Polacrilex 2 Mg Gum) 2 piece MT PRN PRN PRN Reason: Nicotine Withdrawal Symptoms Stop: 08/02/25 14:14 Last Admin: 07/13/25 07:40 Dose: 2 piece Silver Sulfadiazine (Silver Sulfadiazine 1% Cr 400 Gm Jar) 1 appln EXT BID HIPOLITO Stop: 08/05/25 20:59 Last Admin: 07/13/25 08:42 Dose: 1 appln Sodium Chloride (Sodium Chloride 0.65% Na Soln 45 Ml ([place])) 1 - 2 sprays NA PRN PRN PRN Reason: Nasal Dryness/Congestion Stop: 08/02/25 14:14 Venlafaxine HCl (Venlafaxine Hcl 50 Mg Tab) 150 mg PO DAILY HIPOLITO Stop: 08/10/25 09:29 Last Admin: 07/13/25 08:43 Dose: 150 mg Mental Health & Subst Abuse Tx Psychiatrist Name of Psychiatrist: Denita Fernando Psychiatrist's Date Of Appointment With Psychiatric Provider: 08/07/25 Time of Appointment with Psychiatrist: 9am Therapist Name of Therapist: Aileen Gmoez Therapist's Date of Therapist Appointment: 07/21/25 Time of Therapist Appointment: 8:00 AM Therapy Appointment Comment: Call or email w/ CC info prior to appoint Appetizer Packer Name of Appetizer Packer: Denies Post Discharge Appointments Primary Care Physician [facility]: [facility] Contact Information Discharge Discharge Address: [facility] [place] [address]
--- NOTE | 2025-07-14 08:57 | Discharge Summary ---
Date of Service July 14, 2025 History of Present Illness LINDA ROMERO is a 20-year-old F who currently lives with a roommate, has a history of depression and anxiety, and was admitted on 07/03/25 14:15 on a 201 voluntary commitment for stabilization. According to the emergency room evaluation note on 07/03/25, "Patient was sent over to the emergency room for mental health evaluation. She was filling out a depression screening at her primary care office and there were several red flags noted. She has had some ongoing suicidal thoughts for months now. . ." Patient has previous admission at [facility] in November 2024 she was treated for MDD, BEN, and insomnia. she was recommended to continue treatment with clonidine, fluoxetine, quetiapine, and lorazepam. Medications were changed in the outpatient setting. Her home medications include t guanfacine, mirtazapine, duloxetine, hydroxyzine. Patient indicated that she has been feeling depressed for over a year but also believes that she has had difficulty with emotional regulation "my entire life.". Patient shared that she stopped going to school and is taking "a gap year" because of financial constraints. However, she admits that she had been struggling to function in school and feels unmotivated to continue her career path. Patient stated that she used to have problems with insomnia for many years and after the introduction of Remeron the insomnia improved but in the last month she has been sleeping too much, staying in bed 14 hours or more. She wishes to continue Remeron but to find a way of being active during the daytime. She reports feeling extremely fatigued both physically and mentally. Patient stated "I was in bed always, and if I left the place he wants to go to work if I was able to find myself to go to work." She has stated that the symptoms worsened in the last month and the last 2 weeks have been particularly . Patient has a long history of emotional dysregulation, difficulty with social cues, feelings of not belonging, difficulty communicating her thoughts "because I have too many thoughts and I had she denied." History of episodes consistent with jose like symptoms. Reported some obsessive thinking but no clear history of compulsions or ritualistic behaviors. She has a history of interacting in an imaginary world when she was younger but denies history of psychosis. Patient was never formally diagnosed with ADHD but admits to having problems with attention and concentration. She feels that guanfacine has been very helpful. Wishes to increase the dose of guanfacine and understands that this can cause hypotension. Patient denied suicidal ideation plan or intent at this time. However reports past attempts including an attempt to overdose early earlier this year (which prompted an admission to our hospital in October). Physical Exam Vital Signs (Past 24 Hours) Last Vital Signs Temp 36.6 C 07/14/25 06:00 Pulse 84 07/14/25 06:05 Resp 18 07/14/25 06:00 BP 121/84 07/14/25 06:05 Pulse Ox 100 07/14/25 06:00 O2 Del Method Room Air 07/14/25 06:00 Principal Diagnosis Major Depressive Disorder with anxious distress Psychiatric Data See daily stay summary. In short, patient was engaged with the social/therapeutic milieu of the unit, safety was maintained (with exception of some episodes of self-harm) and the patient was cooperative with care. Medication changes included discontinuation of fluoxetine, titration of Effexor to 150mg daily, initiation of gabapentin 300mg TID for off-label use for anxiety, increase of guanfacine to 1mg BID for ADHD and anxiety and they tolerated this well. A support session was held and safety plan was completed prior to discharge. They participated in safety planning and in discussions about ways to seek support and recognizing warning signs and utilizing coping skills. Reviewed ways to have their safety plan and contacts easily available should thoughts of SI re-emerge in the future. Reviewed importance of seeking emergency care should SI intensify, worsen or should they feel unsafe in the future which they agree to do. On the day of discharge they stated their mood was "anxious but excited to watch Shameless again" and remained future-oriented including spending time with her family, returning to [place], watching a TV show she enjoys, starting a new job, and engaging in aftercare appointments for [facility] IOP intake and option for [facility] for therapy and psychiatry if needed. Day of Discharge Assessment Today the patient voices readiness for discharge. They note improvement in mood and some lessening of anxiety. They deny thoughts of harm to self or others. Thoughts are organized and they are clinically improved from admission. There is no evidence of psychosis. They improved in the hospital with support and medication adjustments. They agree to take medications as prescribed and keep follow-up appointments. At the time of the discharge they are deemed to be stable and appropriate for outpatient level of care. They are not deemed to be at imminent risk of harm to self or others. They are aware of emergency and crisis services. Knows to call 911 or go to nearest emergency care center if in a crisis which cannot be handled as an outpatient. Suicide risk assessment: Acute risk is low given improvement in mood and denial of SI, lack of access to lethal means, plan to avoid substance use, improvement in sleep, hopefulness and reduction of self-harm. Chronic risk is high given some non-modifiable risk factors: psychiatric co-morbid diagnoses, periods of impulsivity, prior attempt, hx self-harm, emotional reactivity, prior psychiatric hospitalizations, limited social support, cluster B personality disorder, trauma, but also with protective factors including employed, sense of responsibility to family and social supports, positive coping skills, positive problem solving, some self- observation. Counseled on ways to reduce acute and chronic risk including engaging with outpatient providers, using safety plan if needed, utilizing supports, taking medication, and using coping skills. Modifiable risk factors of SI and depression were addressed during hospitalization through development of new coping skills, support meeting, safety planning, and medication adjustments and psychoeducation including recommendation for DBT IOP. Discharge physical exam: See admission H&P, MSE per above and day of discharge summary. Overall, I spent a total of 35 minutes on this case including meeting with the patient, reviewing the chart, nursing report, multidisciplinary team meeting, discharge orders, anticipatory planning, safety planning, risk assessment and documentation. Transition of Care Transition Of Care Record: was reviewed with the patient Advance Directives Advance Directives Information Provided: Yes Advance Directives: No Mental Health Advance Directive: No Advance Directives on File: No Living Will: No Power of Pasting Machine Offbearer: No Advance Directives Reason:: Declines as Mental Health Visit. Suicide Risk Level Suicide Risk Level Comments: see assessment above Risk Factors Assessment Male: No : Yes Do You Have Access To A Gun?: No Health Problems: No Mental Health Diagnoses: Yes Substance Use Disorders: Yes Previous Attempt: Yes Family History of Suicide: No Previous Psychiatric Hospitalization: Yes Hopelessness: No Protective Factors Assessment Employed: Yes ([employer]) Stable Relationships: No Supportive Family: Yes Good Rapport with Provider: Yes Tobacco Cessation at Discharge Tobacco Cessation Medication Prescribed at Discharge: Offered & Prescribed Discharge Data Lab Results 07/03/25 07/03/25 10:30 11:53 WBC 14.31 H RBC 5.26 Hgb 15.2 Hct 44.0 MCV 83.7 MCH 28.9 MCHC 34.5 RDW Std Deviation 39.6 RDW Coeff of Derrick 12.9 Plt Count 335 MPV 9.9 Immature Gran % (Auto) 0.4 Neut % (Auto) 71.4 Lymph % (Auto) 21.7 Mathews % (Auto) 4.1 Eos % (Auto) 1.8 Baso % (Auto) 0.6 Neut # (Auto) 10.21 H Lymph # (Auto) 3.11 Mathews # (Auto) 0.59 Eos # (Auto) 0.26 Baso # (Auto) 0.08 Immature Gran # (Auto) 0.06 Sodium 138 Potassium 4.1 Chloride 103 Carbon Dioxide 27 Anion Gap 8 BUN 14 Creatinine 0.76 Est Cr Clr Drug Dosing 97.7 eGFR 114.97 BUN/Creatinine Ratio 18.4 Glucose 96 Calcium 9.5 Total Bilirubin 0.3 AST 19 ALT 10 Alkaline Phosphatase 66 Total Protein 7.7 Albumin 4.7 Globulin 3.0 Albumin/Globulin Ratio 1.6 TSH 2.829 Urine Color Yellow Urine Appearance Clear Urine pH 6.5 Ur Specific Corinth 1.022 Urine Protein Negative Urine Glucose (UA) Negative Urine Ketones Negative Urine Blood Negative Urine Nitrite Negative Urine Bilirubin Negative Urine Urobilinogen Negative Ur Leukocyte Esterase Negative Urine Test Negative Urine Comment Salicylates < 3.0 L Urine Opiates Screen Neg Ur Methadone, Qual Neg Urine Fentanyl Screen Neg Acetaminophen < 3 L Urine Barbiturates Neg Ur Phencyclidine (PCP) Neg U Amphetamin/Meth Scrn Neg MDMA (Ecstasy) Screen Neg U Benzodiazepines Scrn Neg Ur Cocaine Metabolite Neg U Marijuana (THC) Screen Pos H U Marijuana THC Carboxy 846 H Drug Screen Comment SEE NOTE Ethyl Alcohol mg/dL < 10.0 SARS-CoV-2, RNA, NAAT NEGATIVE Hospital Course (1) MDD (major depressive disorder), recurrent severe, without psychosis: (2) Borderline personality disorder: (3) Depression with suicidal ideation: (4) Generalized anxiety disorder with panic attacks: (5) Cannabis use disorder: Plan 07/14/2025: -She feels safe and desires discharge today 07/13/2025: -Continue current medications and tx plan 07/12/2025: -Continue current medications and tx plan 07/11/2025: -Start gabapentin 300mg TID -Provided with BPD screening tool 07/10/25 Continue rest of medications without change Monitor mood and behavior Will activate 1:1 if patient has a new episode of self harm 07/09/25 Continue medications without changes Effexor 150 mg p.o. every morning Remeron 15 mg at bedtime Guanfacine 1 mg twice daily Monitor mood and behavior Monitor skin 07/08/25 Increase Effexor to 150 mg p.o. every morning starting tomorrow Rest of medications continue without changes Monitor constipation. Patient received 1 dose of lactulose that was ineffective and refused a second dose due to feeling it upset her stomach and she had a small amount of blood in stools but constipation did not resolve. 07/09 Continue medications without changes 07/06/25: - Patient did not try higher dose of Effexor today but will take the higher dose tomorrow morning. Will monitor for GI side effects. - Silvadene topical cream twice daily for self-inflicted superficial burn - Rest of medication continue without changes - Continue suicide precautions 07/05/25: -Increase Effexor to 75mg po tomorrow. -continue rest of medication without changes -continue suicide precautions. 07/04: [facility] unit) on q15 min checks (behavioral with suicide precautions) for safety. The patient will participate in group, recreational, and milieu therapies and will be offered additional individual and family sessions as clinically appropriate. - Start Effexor 37.5 mg p.o. every morning (first dose 07/05) - Discontinue fluoxetine 40mg daily -Increase guanfacine to 1 mg twice daily. Educated about risk for hypotension. Recommended to increase water intake. -Labs: Admission labs reviewed and shared with the patient -Questionnaire: Autism Quotient (score=24) Mental Health & Subst Abuse Tx Psychiatrist Name of Psychiatrist: [facility] Psychiatrist's Date Of Appointment With Psychiatric Provider: 08/07/25 Time of Appointment with Psychiatrist: 9am Psychiatric Appointment Comment: Referral submitted on 07/13/25 Therapist Name of Therapist: [facility] - IOP at the [place], [place] location Therapist's Date of Therapist Appointment: 07/21/25 Time of Therapist Appointment: 8:00 AM Therapy Appointment Comment: Referral submitted on 07/13/25 Basin Cleaner Name of Basin Cleaner: Denies Post Discharge Appointments Primary Care Physician Name Of Family Doctor/PCP: Deja Ruff-[facility] Smoking Cessation Counseling Tobacco Cessation Medication Prescribed at Discharge: Offered & Prescribed Contact Information Discharge Discharge Address: [address] [place] [address] [place] [address] Discharge Plan Discharge Items Patient Disposition: Home - Self-Care Reason For Visit: UNSPECIFIED DEPRESSIVE DISORDER Discharge Diagnosis: Major Depressive Disorder with anxious distress Condition on Discharge: Good Activity: Resume your previous activity Non-emergency contact: Primary Care Provider, Psychiatrist and Therapist Call non-emergency contact if: you have any medication questions and your symptoms worsen Follow-up/Referrals: PCP,NO [Primary Care Provider] - Diet: Regular Addtl Attending Provider Instructions: Optional mobile apps we discussed: -Suicide safety plan -Virtual Hope Box -Dialectical Behavior Therapy: DBT Skills, Worksheets, Videos [email or web address] SPECIAL CARE INSTRUCTIONS: 1. Follow through with your scheduled aftercare appointments. If unable to keep an appointment, please call to reschedule. 2. Take your medication only as prescribed. Medication should not be changed or stopped without the approval of your doctor. In the event of worsening symptoms or concerns about side effects, contact your doctor immediately. 3. Utilize new healthy coping skills, anger management skills, and stress management skills learned during your hospitalization. Journal feelings and process them with a support person. Identify stressors or situations that may result in relapse, deterioration or inappropriate behaviors and develop a plan to deal with those issues. 4. If your coping skills are ineffective and you are in crisis, contact your outpatient providers for direction. If unable to reach your providers, please call the [facility] CRISIS LINE AT , go to the [facility] walk-in center at [address] [place] [address], [address], [place], or go to the closest Emergency Room. 5. Avoid alcohol and un-prescribed drugs. 6. You have been provided with the Mental Health Advance Directives Pamphlet for your review. 7. Your condition is stable for discharge to outpatient level of care, but recovery is an ongoing process. Ifthoughts to harm yourself or others return, follow the safety plan developed during your stay. Planning for a safe return home includes securing weapons. Our treatment team recommends weaponsbe removed from the home until your outpatient provider reassesses your progress. In rare cases where the items themselvescannot be removed, guns and ammunitionshould be secured separatelyand keys stored by a reliable personoutside of the home. If you were admitted on an involuntary commitment, the police or other legal authorities may be involved in this process. AFTERCARE APPOINTMENTS: * Please call your insurance company prior to your scheduled appointment to confirm your aftercare providers are covered. Take your insurance information to your appointments. WHO TO CALL AND WHEN: Medical Emergencies: For questions or emergencies related to your hospital stay, please contact the Inpatient Behavioral Health Unit at [phone]. A telephoner is on-call 12/03 for the Behavioral Health Unit for emergencies At any time you feel your situation is an emergency, you may also call 911 immediately. National Crisis Hotline: 288 Pending Studies at Discharge: No Stand-Alone Forms: My [facility], Smoking Cessation Medications and DC Order Prescriptions: New nicotine (polacrilex) [Nicorette] 2 mg Gum 2 mg MT PRN PRN (Reason: nicotine cravings) 30 Days Qty: 120 0RF guanfacine 1 mg Tablet 1 mg PO BID 30 Days Qty: 60 0RF gabapentin 300 mg Capsule 300 mg PO TID 30 Days Qty: 90 0RF venlafaxine 150 mg tablet extended release 24hr 150 mg PO DAILY 30 Days Qty: 30 0RF silver sulfadiazine 1 % Cream 1 applic EXT BID 7 Days Qty: 20 0RF Continued hydroxyzine HCl 50 mg tablet 50 mg PO BID PRN (Reason: anxiety, insomnia) 30 Days Qty: 60 0RF mirtazapine 15 mg Tablet 15 mg PO HS 30 Days Qty: 30 0RF Discontinued fluoxetine 40 mg capsule 40 mg PO QAM guanfacine 1 mg Tablet 1 mg PO HS Discharge Orders: Discharge Order (Routine); Ordered 07/14/25 Ordered By: Andressa Hughes Admission Data Admit Date/Time: 07/03/25 14:15 Attending Provider: Andressa Hughes Admit Provider: Andressa Hughes Primary Care Provider: PCP,NO Other Interventions: Discharge Summary Assessment (RN) Last Done: 07/14/25 10:56 PSY Interdisciplinary Discharge Planning Last Done: 07/14/25 10:56 Coding Level of Care Code 93526 D/C day mgmt > 30 min Diagnoses MDD (major depressive disorder), recurrent severe, without psychosis F33.2 Borderline personality disorder F60.3 Depression with suicidal ideation F32.A; R45.851 Generalized anxiety disorder with panic attacks F41.1; F41.0 Cannabis use disorder F12.90
== END 2025-07-14 11:50 | disposition home or self-care (01) | DRG 885 ==
LOC: ED 10:07 → 3S 14:15